=== PATIENT | male | born 1975 | race African-American/Black ===

== ENCOUNTER 2017-06-07 14:13 | Inpatient (IN) | payer OTHER ==
[~2017-06-07] VITALS: Ht 182.9 cm; Wt 158.8 kg
--- NOTE | ~2017-06-07 | EKG ---
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: Pramod NEGRON : 1975 Requested By: Agustin Dwyer Order Number: [id number] MD: Sascha Carbajal Measurements Intervals [place] Rate: 101 P: 35 TX: 171 QRS: -18 QRSD: 104 T: 150 QT: 334 QTc: 433 Interpretive Statements Sinus tachycardia Probable left atrial enlargement LVH with secondary repolarization abnormality No previous ECG available for comparison Electronically Signed On 06-10-2017 22:00:41 CDT by Sascha Carbajal [email or web address] <ELECTRONICALLY SIGNED> By: Sascha Carbajal MD 06/10/170 1443 1443 Sascha Carbajal MD /[place]
[~2017-06-07 14:13] MED LIST: IBUPROFEN 600600 M1 PO; IBUPROFEN 800800 MG PO; LASIX 20 MG TAB20 MG; MAGOX 400400 MG PO; NORCO 5-325 TA1 EACH PO; ULTRAM 50MG TAB50 MG PO
[2017-06-07 14:15] VITALS: BP 145/100
[2017-06-07] MEDS ORDERED: LISINOPRIL5 MG PO (14:23)
[2017-06-07] MEDS ORDERED: ALDACTONE25 MG PO (14:25)
[2017-06-07] MEDS ORDERED: CARVEDILOL6.25 MG PO (14:27)
[2017-06-07] MEDS ORDERED: LASIX 40 MG TAB40 M2 PO (14:27)
[2017-06-07] MEDS ORDERED: ELIQUIS5 MG PO (14:28)
[2017-06-07 14:45] LABS: HEMATOCRIT 34.9 % (42.0-52.0); HEMOGLOBIN 12.4 gm/dL (14.0-18.0); MCH 33.1 pg (26.0-34.0); MCHC 35.5 g/dL (28.0-37.0); MCV 93.4 fL (80.0-100.0); PLATELET COUNT 199 thou/uL (150-400); RBC 3.74 mil/uL (4.50-6.00); RDW 14.3 % (10.5-14.5); WBC 8.5 thou/uL (4.0-11.0)
[2017-06-07 14:47] LABS: MANUAL DIFF YES
[2017-06-07 14:58] LABS: INR 1.1; PROTIME 11.9 Seconds (9.3-11.4)
[2017-06-07 15:01] LABS: ALBUMIN 2.8 g/dL (3.4-5.0); ALKALINE PHOSPHATASE 57 U/L (46-116); ANION GAP 7 mmol/L (7-16); BUN 11 mg/dL (7-18); CALCIUM 9.3 mg/dL (8.5-10.1); CHLORIDE 100 mmol/L (98-107); CO2 31 mmol/L (21-32); GLUCOSE 123 mg/dL (74-106); NT-PRO BRAIN NAT PEPTIDE 95 pg/mL (<300); SGOT 22 U/L (15-37); SGPT 13 U/L (30-65); SODIUM 138 mmol/L (136-145); TOTAL BILIRUBIN 0.8 mg/dL (<0.1-1.0); TOTAL PROTEIN 8.4 g/dL (6.4-8.2); TROPONIN-I < 0.04 ng/mL (<0.04-0.07)
[2017-06-07 15:05] LABS: ABSOLUTE NEUTROPHILS 4.3 thou/uL (1.4-8.2); PLATELET ESTIMATE NORMAL; TOTAL CELL COUNT 100
[2017-06-07 15:06] LABS: POTASSIUM 2.8 mmol/L (3.5-5.1)
[2017-06-07 15:31] LABS: ABG SAMPLE TYPE ARTERIAL; BE(vivo) 8.2 mmol/L (-2 to +3); HCO3 33.3 mmol/L (22.0-26.0); LACTATE 1.51 mmol/L (0.5-2.0); O2(CT) 16.1 mL/dL (15.0-23.0); O2Hb 89.3 % (92.0-98.0); STICK SITE R.RADIAL; pH 7.459 (7.360-7.450); tCO2 34.8 mmol/L (24.0-30.0)
[2017-06-07 17:37] VITALS: BP 162/99
[2017-06-07 18:49] VITALS: BP 153/96
[2017-06-07 20:50] VITALS: BP 158/91
[2017-06-07 21:27] LABS: URINE BILIRUBIN NEGATIVE (Negative); URINE BLOOD TRACE (Negative); URINE COLOR YELLOW; URINE GLUCOSE-RANDOM* NEGATIVE (Negative); URINE KETONES NEGATIVE (Negative); URINE NITRITE NEGATIVE (Negative); URINE PROTEIN (DIPSTICK) 1+ (Negative); URINE SPECIFIC GRAVITY 1.015 (1.003-1.035); URINE UROBILINOGEN >= 8.0 E.U./dl (0.2-1.0)
[2017-06-07 21:33] LABS: BACTERIA 1-9 Few /HPF (None Seen); CASTS None Seen /LPF (None Seen); CRYSTALS None Seen /LPF (None Seen); SQUAMOUS None Seen /LPF (0-3); URINE RBC None Seen /HPF (0-2); URINE WBC None Seen /HPF (0-5)
[2017-06-08 00:12] VITALS: BP 154/94
[2017-06-08 01:58] LABS: HEMATOCRIT 31.6 % (42.0-52.0); HEMOGLOBIN 11.1 gm/dL (14.0-18.0); MCH 32.9 pg (26.0-34.0); MCHC 35.1 g/dL (28.0-37.0); MCV 93.8 fL (80.0-100.0); RBC 3.37 mil/uL (4.50-6.00); RDW 14.1 % (10.5-14.5); WBC 7.8 thou/uL (4.0-11.0)
[2017-06-08 02:02] LABS: CALCIUM 8.2 mg/dL (8.5-10.1); CREATININE 0.8 mg/dL (0.7-1.3); MAGNESIUM 1.8 mg/dL (1.8-2.4)
[2017-06-08 02:21] LABS: POTASSIUM 2.9 mmol/L (3.5-5.1)
[2017-06-08 04:25] VITALS: BP 157/97
[2017-06-08 08:45] VITALS: BP 151/90
[2017-06-08 16:45] VITALS: BP 156/97
[2017-06-08 19:30] VITALS: BP 171/95
[2017-06-09 04:30] VITALS: BP 146/94
[2017-06-09 08:02] VITALS: BP 157/97
[2017-06-09 19:50] VITALS: BP 155/99
[2017-06-10 05:00] VITALS: BP 150/96
[2017-06-10 07:52] LABS: CALCIUM 8.7 mg/dL (8.5-10.1); CREATININE 0.9 mg/dL (0.7-1.3); POTASSIUM 4.2 mmol/L (3.5-5.1)
[2017-06-10] MEDS ORDERED: HYDROCODON-ACE1 EAC7 PO (07:58)
[2017-06-10] MEDS ORDERED: PREDNISONE10 MG PO (07:59)
[2017-06-10 08:07] VITALS: BP 150/96
[2017-06-10 08:14] VITALS: BP 173/113
[2017-06-10 08:15] VITALS: BP 115/100
== END 2017-06-10 09:37 | disposition home or self-care (01) | DRG 558 ==
LOC: ER 14:13 → EROBS 17:08 → 4S 17:08
PROVIDERS: Emergency Medicine; Family Medicine
DX: M62.82 Rhabdomyolysis (principal); I42.9 Cardiomyopathy, unspecified; I50.30 Unspecified diastolic (congestive) heart failure; M10.9 Gout, unspecified; I11.0 Hypertensive heart disease with heart failure; E87.6 Hypokalemia; Z86.718 Personal history of other venous thrombosis and embolism; Z87.891 Personal history of nicotine dependence; Z79.899 Other long term (current) drug therapy
CPT/HCPCS: 10100

== ENCOUNTER 2018-08-28 08:17 | Emergency (ER) | payer OTHER ==
[~2018-08-28] VITALS: Ht 182.9 cm; Wt 152.4 kg
--- NOTE | ~2018-08-28 | EKG ---
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 08/28/18 1713 1 1 Paulino Machuca MD, [facility] /EPI
--- NOTE | ~2018-08-28 | EKG ---
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1975 Requested By: Maribell Barbour Order Number: [id number] MD: Paulino Machuca Measurements Intervals [place] Rate: 107 P: 50 MI: 171 QRS: -29 QRSD: 100 T: 76 QT: 357 QTc: 477 Interpretive Statements Sinus tachycardia Left atrial enlargement Poor R wave progression Borderline prolonged QT interval Compared to ECG 06/07/2017 14:43:14 Supraventricular tachycardia is no longer present Electronically Signed On 08-28-2018 17:14:06 CDT by Paulino Machuca [email or web address] <ELECTRONICALLY SIGNED> By: Paulino Machuca MD, [facility] 08/28/18 1714 5 5 Paulino Machuca MD, [facility] /EPI
[~2018-08-28 08:17] MED LIST changes: +ALDACTONE25 MG PO; +CARVEDILOL6.25 MG PO; +COLCHICINE0.6 MG PO; +ELIQUIS5 MG PO; +HYDROCODON-ACE1 EAC7 PO; +LASIX 40 MG TAB40 M2 PO; +LISINOPRIL5 MG PO; +PREDNISONE 20 M20 MG PO; +PREDNISONE10 MG PO
[2018-08-28 09:00] LABS: HEMATOCRIT 42.5 % (42.0-52.0); HEMOGLOBIN 14.5 gm/dL (14.0-18.0); MCH 31.7 pg (26.0-34.0); MCHC 34.2 g/dL (28.0-37.0); MCV 92.8 fL (80.0-100.0); RBC 4.58 mil/uL (4.50-6.00); RDW 14.8 % (10.5-14.5); WBC 6.2 thou/uL (4.0-11.0)
[2018-08-28 09:08] LABS: CALCIUM 9.2 mg/dL (8.5-10.1); CREATININE 1.4 mg/dL (0.7-1.3); POTASSIUM 3.6 mmol/L (3.5-5.1)
[2018-08-28 09:17] LABS: TROPONIN-I 0.07 ng/mL (<0.06)
[2018-08-28 10:08] VITALS: BP 127/90
== END 2018-08-28 10:09 | disposition home or self-care (01) ==
LOC: ER 08:17
PROVIDERS: Emergency Medicine
DX: I47.1 Supraventricular tachycardia (principal); I50.9 Heart failure, unspecified; M10.9 Gout, unspecified; Z86.718 Personal history of other venous thrombosis and embolism; Z87.891 Personal history of nicotine dependence

== ENCOUNTER 2019-03-01 17:38 | Inpatient (IN) | payer OTHER ==
[~2019-03-01] VITALS: Ht 180.3 cm; Wt 207.7 kg
[2019-03-01 18:42] VITALS: BP 183/118
--- NOTE | 2019-03-01 18:44 | NUR ---
PT HAD ARRIVED ABOUT AN HOUR AGO. VS WERE TAKEN AT THAT TIME WITH HR: 110, SPO2: 94%; BP: 189/119.
--- NOTE | 2019-03-01 18:47 | NUR ---
PT IN TRIAGE AND IS VERY SOA. PT SPO2 WAS 87% THEN WHEN HE WAS TALKING IT DIPPED TO 84%. WHEN PT IS CALM AND NOT TALKING, SPO2 GOES TO 90%. PT AWAITING ROOM ASSIGNMENT.
--- NOTE | 2019-03-01 18:54 | NUR ---
TOOK PT TO ROOM 7 WITH O2 PER NC. PT PLACED ON MANAGER NIGHT AND SPO2 MONITOR. O2 AT 2L USED.
[2019-03-01 19:15] LABS: BASOPHILS 0.8 % (0.0-2.0); HEMATOCRIT 39.1 % (42.0-52.0); HEMOGLOBIN 13.1 gm/dL (14.0-18.0); LYMPHOCYTES 23.7 % (24.0-44.0); MCH 31.7 pg (26.0-34.0); MCHC 33.5 g/dL (28.0-37.0); MCV 94.4 fL (80.0-100.0); MONOCYTES 8.7 % (1.0-8.0); PLATELET COUNT 209 thou/uL (150-400); POLYS 63.8 % (36.0-66.0); RBC 4.14 mil/uL (4.50-6.00); RDW 16.2 % (10.5-14.5); WBC 6.3 thou/uL (4.0-11.0)
[2019-03-01 19:33] LABS: ALBUMIN 2.8 g/dL (3.4-5.0); CALCIUM 8.5 mg/dL (8.5-10.1); TOTAL BILIRUBIN 0.6 mg/dL (<0.1-1.0); TROPONIN-I 0.07 ng/mL (<0.06)
[2019-03-01 19:35] LABS: POTASSIUM 2.9 mmol/L (3.5-5.1)
[2019-03-01 20:12] LABS: CALCIUM 8.2 mg/dL (8.5-10.1); MAGNESIUM 1.6 mg/dL (1.8-2.4)
[2019-03-01] MEDS ORDERED: CARVEDILOL3.125 MG PO (21:46)
[2019-03-01] MEDS ORDERED: LISINOPRIL20 MG PO (21:46)
[2019-03-01 22:03] VITALS: BP 165/94
[2019-03-01 22:30] VITALS: BP 153/109
--- NOTE | 2019-03-02 01:31 | NUR ---
PT ARRIVED FROM ER AROUND 2210 ON 01/01/2019. PT A&0X4. VSS. ON 4L NC. PT HAS EVIDENT EDEMA ON HIS LEGS, DUSKY LOOKING, & TAUT. THE SKIN PROXIMAL TO HIS KNEES APPEARS PINK WELL. MED REC COMPLETED, HE STATED THAT HE DOES NOT LIKE TO USE HIS COREG BECAUSE HE NOTICED THAT WHENEVER HE TAKES IT, HIS SWELLING INCREASES. PT REQUESTED A SLEEPING AID.HE STATED THAT THE MOST SLEEP HE HAD GOTTEN IN THE LAST MONTH IS 2 [address]RS AT A TIME. SO DR. HASSAN NOTIFIED, AMBIEN RX AND ADMINISTERED. PT ALSO STATED THAT HE HAD GAINED ABOUT 36 LBS IN THE LAST 2 MONTHS. HE FURTHER COMPLAINED OF LOWER ABD PAIN AND NERY LEG PAIN. PT IS STABLE. KATEYY SLEEPING. WILL CONTINUE TO MONITOR PER POC.
[2019-03-02 05:32] VITALS: BP 150/111
[2019-03-02 06:12] LABS: MAGNESIUM 1.6 mg/dL (1.8-2.4); POTASSIUM 3.4 mmol/L (3.5-5.1)
[2019-03-02 07:30] VITALS: BP 153/108
[2019-03-02 10:28] LABS: MAGNESIUM 1.7 mg/dL (1.8-2.4); POTASSIUM 3.2 mmol/L (3.5-5.1)
[2019-03-02 13:00] VITALS: BP 154/100
--- NOTE | 2019-03-02 13:41 | EKG ---
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 : 1975 Requested By: Carie Bush Order Number: [id number] MD: Paulino Machuca Measurements Intervals [place] Rate: 101 P: 53 IN: 172 QRS: -34 QRSD: 103 T: 101 QT: 378 QTc: 490 Interpretive Statements Sinus tachycardia Left atrial enlargement Left axis deviation Abnormal R-wave progression, late transition Nonspecific repol abnormality, lateral leads Compared to ECG 08/28/2018 08:36:35 No significant change was found Electronically Signed On 03-02-2019 13:41:13 CDT by Paulino Machuca [email or web address] ��������������������������������������������� <ELECTRONICALLY SIGNED> ���������������������������������������� By: Paulino Machuca MD, [facility] ��������������������������������������������� 03/02/19 1341 1749 1749 Paulino Machuca MD, [facility] /EPI
[2019-03-02 14:09] LABS: MAGNESIUM 1.8 mg/dL (1.8-2.4); POTASSIUM 3.5 mmol/L (3.5-5.1)
[2019-03-02 16:13] VITALS: BP 144/103
--- NOTE | 2019-03-02 17:17 | NUR ---
ASSUMED CARE OF PT AT SHIFT CHANGE. ASSESSMENT CHARTED. MEDS GIVEN PER JAN. PT ALERT AND ORIENTED, VSS- BP ELEVATED, PHYSICIAN AWARE. NSR ON MONITOR, O2 SATS WNL ON 4L O2, PT SOB WITH ACTIVITY, RESOLVES WITH REST. PT CONTINUES TO HAVE EDEMA BILATERAL LEGS AND FEET, LASIX GIVEN PER JAN. URINE OUTPUT ADEQUATE, PT GOT UP AND WALKED ARUOND, TOLERATED WELL. C/O BILAT LEG PAIN AND RIGHT KNEE PAIN. PHYSICIAN NOTIFIED OXYCODONE PROVIDING NO RELIEF. ORDERS RECEIVED FOR TORADOL. PT DENIES CONCERNS AT THIS TIME. WILL CONTINUE TO MONITOR AND REASSESS PAIN NEEDED AND FOLLOW POC.
[2019-03-02 19:55] VITALS: BP 148/94
[2019-03-03 03:56] LABS: CALCIUM 8.3 mg/dL (8.5-10.1); CREATININE 0.9 mg/dL (0.7-1.3); MAGNESIUM 1.9 mg/dL (1.8-2.4); POTASSIUM 3.7 mmol/L (3.5-5.1)
[2019-03-03 04:55] VITALS: BP 143/99
--- NOTE | 2019-03-03 05:31 | NUR ---
ASSUME CARE AT 1900. PT AO X 4. C/O PAIN IN THE RIGHT KNEE. OXY GIVEN . VITAL SIGNS STABLE. DARK BROWN URINE. DENIES PAIN WITH URINATION. DENIES NAUSEA, VOMITING OR CHEST PAIN. PATIENT CONCERNED ABOUT SWELLING IN HIS FEET. ON LESIX. WILL CONTINUE TO FOLLOW PLAN OF CARE.
[2019-03-03 07:26] VITALS: BP 142/102
[2019-03-03 10:59] VITALS: BP 142/85
--- NOTE | 2019-03-03 11:02 | 2DMMODE ---
[facility] [address] [place] [address] 2 D/M-MODE ECHOCARDIOGRAM Name: KAERNJANEL J Room #: 205-P [facility] IN ..#: [id number] ������������� Admission: 03/01/19 ������������� Attend Phys: Moe John, Discharge: ��� ������������� ��� Date of : 79 Date of Service: 03/03/19 1102 �� Report #: [id number] �������� ��������������������������������������������[id number] THIS REPORT FOR: //name// APPROVED REPORT Study performed: 03/03/2019 08:55:33 EXAM: Comprehensive 2D, Doppler, and color-flow Echocardiogram Patient Location: Bedside Room #: [facility] Status: routine BSA: 3.00 HR: 98 bpm BP: 142/102 mmHg Rhythm: Tachycardia Other Information Study Quality: Technically Difficult Technically limited study due to body habitus, inability to position patient. Indications Congestive Heart Failure Hypertension/HDD SOA Echo Enhancing Agent Indication: Endocardial border delineation Agent(s) / Amount(s) Used: Optison 4 cc 2D Dimensions IVSd: 15.35 (7-11mm) LVOT Diam: 27.94 (18-24mm) LVDd: 51.00 mm PWd: 16.50 (7-11mm) Ascending Ao: 27.96 (22-36mm) LVDs: 44.41 (25-40mm) Aortic Root: 35.01 mm Volumes Left Atrial Volume (Systole) Single Plane 4CH: 38.59 mL Single Plane 2CH: 40.61 mL LA ESV Index: 14.00 mL/m2 Aortic Valve AoV Peak Jason.: 1.41 m/s AO Peak Gr.: 7.90 mmHg LVOT Max P.68 mmHg [facility] [address] [place] [address] 2 D/M-MODE ECHOCARDIOGRAM Name: JANEL JONES Pramod II Room #: [address] [place] [address] [place] [facility]#: [id number] ������������� Admission: 03/01/19 ������������� Attend Phys: Moe John, Discharge: ��� ������������� ��� Date of : 79 Date of Service: 03/03/19 1102 �� Report #: [id number] �������� ��������������������������������������������[id number] LVOT Max V: 0.82 m/s CHILO Vmax: 3.57 cm2 Mitral Valve E/A Ratio: 0.8 MV Decel. Time: 175.67 ms MV E Max Jason.: 0.68 m/s MV A Jason.: 0.85 m/s MV PHT: 50.94 ms Pulmonary Valve PV Peak Jason.: 0.97 m/s PV Peak Gr.: 3.74 mmHg Left Ventricle The left ventricle is normal size. Moderate concentric left ventricular hypertrophy. Left ventricular ejection fraction is moderate to severely decreased. LVEF is 30-35%. Transmitral Doppler flow pattern suggests impaired LV relaxation. Right Ventricle Right ventricle is not well visualized. Atria The left atrium size is normal. Right atrium is not well visualized. Aortic Valve The aortic valve is not well visualized. No aortic regurgitation is visualized. There is no aortic valvular stenosis. Mitral Valve The mitral valve is normal in structure. There is no mitral valve regurgitation noted. No evidence of mitral valve stenosis. Tricuspid Valve Tricuspid valve is not well visualized. There is no tricuspid valve regurgitation noted. Pulmonic Valve Pulmonic valve is not well visualized. Great Vessels The aortic root is normal in size. The inferior vena cava is not visualized. Pericardium [address] [address] 2 D/M-MODE ECHOCARDIOGRAM Name: KARENJANEL Room #: 205-P [facility] IN M.R.#: [id number] ������������� Admission: 03/01/19 ������������� Attend Phys: Moe John, Discharge: ��� ������������� ��� Date of : 79 Date of Service: 03/03/191101 �� Report #: [id number] �������� ��������������������������������������������[id number] There is no pericardial effusion. <Conclusion> Extremely limited study, almost uninterpretable Left ventricular ejection fraction is moderate to severely decreased. LVEF is 30-35%. The aortic valve is not well visualized. No aortic regurgitation or stenosis The mitral valve is normal in structure. No mitral valve regurgitation. There is no pericardial effusion. ��������������������������������������������� <ELECTRONICALLY SIGNED> ���������������������������������������� By: Paulino Machuca MD, FACC ��������������������������������������������� 03/03/19 1102 01 1102 Paulino Machuca MD, FACC /INF
[2019-03-03 15:40] VITALS: BP 147/97
--- NOTE | 2019-03-03 16:21 | NUR ---
PT O2 NEEDS INCREASED TO 5L PER NC. PT C/O SOA WITH MINIMAL EXERTION. PT C/O RT KNEE PAIN, DOPPLER NEGATIVE FOR DVT. PRN OXYCODONE EFFECTIVE FOR PAIN MANAGEMENT. PT CONT TO DIURESE WITH IV LASIX. PT DIFFICULT TO REPOSITION D/T OBESITY. PT'S FATHER AT BEDSIDE
[2019-03-03 20:45] VITALS: BP 139/83
--- NOTE | 2019-03-04 04:30 | NUR ---
PT ON 5 L OF OXYGEN. REFUSED CPAP IT HAD BEEN SUGGESTED BY DR. HASSAN. STILL C/O OF RIGHT KNEE PAIN, ALLEVIATED BY PRN OXYCODONE. PT ALSO HAS DARK/COFFEE COLOR URINE. DENIES BURNING/PAIN OR URINE URGENCY. VITALS REMAIN STABLE. WILL CONTINUE TO FOLLOW POC.
[2019-03-04 04:55] VITALS: BP 147/79
[2019-03-04 07:46] VITALS: BP 128/77
[2019-03-04 08:42] LABS: CALCIUM 9.3 mg/dL (8.5-10.1); CREATININE 1.1 mg/dL (0.7-1.3); POTASSIUM 3.8 mmol/L (3.5-5.1)
[2019-03-04 11:04] VITALS: BP 129/89
--- NOTE | 2019-03-04 13:53 | EKG ---
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 : 1975 Requested By: Sascha Carbajal Order Number: [id number] MD: Sascha Carbajal Measurements Intervals [place] Rate: 96 P: 24 NC: 177 QRS: -18 QRSD: 97 T: 109 QT: 365 QTc: 462 Interpretive Statements Sinus rhythm Left atrial enlargement Borderline left axis deviation Abnormal R-wave progression, late transition Borderline repolarization abnormality Baseline wander in lead(s) II,V1 Compared to ECG 03/01/2019 17:49:34 Sinus tachycardia no longer present Electronically Signed On 03-04-2019 13:53:46 CDT by Sascha Carbajal [email or web address] ��������������������������������������������� <ELECTRONICALLY SIGNED> ���������������������������������������� By: Sascha Carbajal MD ��������������������������������������������� 03/04/19 1353 7 7 Sascha Carbajal MD /EPI
--- NOTE | 2019-03-04 15:20 | NUR ---
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 Patient resides in independent home. 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 His PCP is Dr John. He is obese and reports he may need oxygen at home. He is currently on 5 liters. patient does not use any cpap/bipap at home. His employment aware he is in hospital and he has adequate time off work.
[2019-03-04 16:38] VITALS: BP 144/91
--- NOTE | 2019-03-04 17:14 | NUR ---
RESTING QUIETLY IN BED AT PRESENT. ON 5L/NC. FEELING LESS SOB WITH EXERTION. NERY LE EDEMA NOTED. UNABLE TO PALPATE PEDAL PULSES. MAIN COMPLAINT LOW BACK PAIN. IV ACCIDENTALLY PULLED OUT BY PATIENT. HAVE PAGED IV TEAM TO RESTART. TOOK SHOWER. IN [employer] BECAUSE HE WAS ABLE TO GET AND WALK TODAY. EATING APPROXIMATELY 1/2 OF MEALS. HOPING TO GO HOME TOMORROW.
[2019-03-04 19:55] VITALS: BP 121/50
--- NOTE | 2019-03-05 04:40 | NUR ---
PT STILL STILL EXPERIENCING RESP DISTRACE WITH EXERTION. REMAINS ON 5L NC. DENIES CHEST PAIN, NAUSEA OR VOMITING. PT REPORTS FEELING BETTER YESTERDAY HE WAS ABLE TO WALK AROUND AND TAKE A SHOWER. C/O RIGHT KNEE PAIN, ALLEVIATED BY TORADOL. VITALS STABLE. NO FURTHER C/O AT THIS TIME. WILL CONTINUE TO FOLLOW POC.
[2019-03-05 04:55] VITALS: BP 139/65
[2019-03-05 07:14] VITALS: BP 128/69
[2019-03-05 10:17] VITALS: BP 147/91
[2019-03-05 11:05] VITALS: BP 147/91
--- NOTE | 2019-03-05 14:14 | NUR ---
PATIENT NEEDING 6 LITERS AT REST WITH OXYGEN AND 15 LITERS WITH ACTIVITY. REQUESTED THERAPY EVAL. SP WITH THERAPIST WHO REPORTS PATIENT WEAK, NOT AT BASELINE AND NEEDING ASSIST. PATIENT MAY BENEFIT FROM REHAB UNIT PRIOR TO HOME. SP WITH PATIENT HE IS DISCOURAGED. HE REPORTS BEING DISAPPOINTED IN HIMSELF. HE STATES HE WAS GETTING AROUND JUST LAST WEEK. HE REPORTS IF HE DIDNT USE WALKER HE FELT LIKE HE WOULD HAVE FALLEN OR BEEN UNABLE TO STAND. DISCUSSED POSSIBLE NEED FOR 5N AND HE IS AGREEABLE IF NEEDED.
[2019-03-05 14:21] VITALS: BP 144/82
--- NOTE | 2019-03-05 14:33 | NUR ---
Nutrition: pt admitted with SOA, swelling in feet, heart failure. Diuresing. Seen due to extreme class 3 obesity, BMI 63. Unable to speak with pt on 3 attempts to visit. On low sodium diet with 50% intake of meals documented yesterday. RD available if pt interested in weight loss/dietary education.
--- NOTE | 2019-03-05 16:39 | NUR ---
ASSESSMENT CHARTED - PATIENT WITH ODEMA IN LEGS BILAT L>R LEFT LEG FIRM WITH SWELLING. PT STATES THAT IS UNCOMFORTABLE AND HURTS IF FOOT PUSHED ON. SEEN BY PHYS THERAPY - PT NOT READY FOR DISCHARGE - HAS TO USE WALKER AND POST EXERCISE OX PT NEED TO AMBULATE ON [address] HASSAN NOTIFIED FOR REHAB CONSULT. PT UP IN CHAIR IN THE ROOM. MOHAMUD DIET AND FLUIDS WITH NO CO'S OF NAUSEA. LASIX GIVEN WITH GOOD RESULTS. NOP CO'S AT THE PRESENT TIME.
[2019-03-05 19:12] VITALS: BP 125/62
--- NOTE | 2019-03-06 03:41 | NUR ---
ASSESSMENT DOCUMENTED.PT RESTING IN NO ACUTE DISTRESS.VSS.REMAINS ON O2 AT 5LITERS PNC,SATS ADEQUATE,NOTED SOA DAVIS.CONTINUES TO C/O PAIN TO NERY LES,PAIN MEDS GIVEN WITH PARTIAL RELIEF.BLES EDEMATOUS,FEELS FIRM TO TOUCH,PT STATES THEY HURT ESPECIALLY WITH AMBULATION.POSITIVE PEDAL PULSES.POC IS TO CONTINUES TO DIURESE AND MONITOR.
[2019-03-06 04:30] LABS: CREATININE 0.9 mg/dL (0.7-1.3); POTASSIUM 3.8 mmol/L (3.5-5.1)
[2019-03-06 04:52] VITALS: BP 120/86
[2019-03-06 07:05] VITALS: BP 145/65
[2019-03-06 11:20] VITALS: BP 113/87
[2019-03-06 16:35] VITALS: BP 128/74
[2019-03-06 19:46] VITALS: BP 130/81
--- NOTE | 2019-03-06 20:00 | NUR ---
SHIFT SUMMARY: PT VERY TIRED, SLEEPING MOST OF SHIFT, AWAKENS EASILY. SR, 5L/NC, SOA WITH ACTIVITY IE AMBULATING TO BATHROOM, TOLERATING DIET, VOIDED-1,350 IN RESPONSE TO LASIX. SLOWLY PROGRESSING.
--- NOTE | 2019-03-07 02:53 | NUR ---
ASSESSSMENT DOCUMENTED.PT RESTING IN NO ACUTE DISTRESS.A/OX4.VSS.CONT TO C/O PAIN TO NERY LEGS THAT IS CONTROLLED WITH PAIN MEDS.REMAINS ON O2 AT 5LITERS.ADEQUATE SPO2.DAVIS.VOIDING ADEQUATELY.ON LASIX 80MG IVP BID.NERY LES EDEMA 3+,FIRM TO TOUCH.POC IS TO POSSIBLE DISCHARGE TO REHAB UNIT TODAY.WILL CONT TO MONITOR PER POC.
[2019-03-07 04:21] VITALS: BP 107/57
[2019-03-07 07:40] VITALS: BP 149/83
--- NOTE | 2019-03-07 10:11 | NUR ---
[facility] ACUTE REHAB CAN ACCEPT THE PT TODAY AND INS AUTH IS IN PLACE. CARE TEAM UPDATED. PT IS AGREEABLE. AWAITING MEDICAL CLEARANCE AND ORDERS FOR DC TO REHAB TODAY.
[2019-03-07] MEDS ORDERED: METOPROLOL SUCC50 MG PO (10:20)
[2019-03-07] MEDS ORDERED: ENOXAPARIN40 MG/0.1 SUBQ (10:20)
[2019-03-07] MEDS ORDERED: OXYCODONE HCL 55 MG PO (10:21)
[2019-03-07] MEDS ORDERED: COZAAR100 MG PO (10:21)
[2019-03-07] MEDS ORDERED: AMLODIPINE BESYL5 M1 PO (10:21)
[2019-03-07] MEDS ORDERED: SPIRONOLACTONE25 M1 PO (10:21)
[2019-03-07] MEDS ORDERED: AMBIEN 5 MG TABL5 M1 PO (10:22)
[2019-03-07] MEDS ORDERED: PREDNISONE 20 M20 M1 PO (10:23)
[2019-03-07 11:20] VITALS: BP 135/77
--- NOTE | 2019-03-10 14:16 | HC ---
[facility] [place] [address] CONSULTATION Name: JANEL JONES II Room #: [address] [place] [address] IN M.R.#: [id number] Admission: 03/01/19 ������������������ Attend Phys: Moe John MD Discharge: 03/07/19 ������������������ Date of : 79 Report #: [id number] THIS REPORT FOR: //name// CC: Paulino John CARDIOLOGY CONSULTATION REASON FOR CONSULTATION: Congestive heart failure. HISTORY OF PRESENT ILLNESS: The patient is a 43-year-old male with a history of diastolic heart failure per Dr. John's notes who presents with several months of worsening shortness of breath and lower extremity edema. He says over the past week, he has had severe shortness of breath and can only take a few steps before he has to stop and rest. He denies any chest pain or chest tightness. He has experienced some orthopnea at night. He denies any presyncope or syncope. PAST MEDICAL HISTORY: 1. Diastolic heart failure. 2. Morbid obesity, weighs 217 kilograms. 3. Gout. 4. Hypertension. SOCIAL HISTORY: Does not smoke. FAMILY HISTORY: Noncontributory. ALLERGIES: None. MEDICATIONS: At home include lisinopril, Coreg and Lasix. REVIEW OF SYSTEMS: A 12-point review of systems was performed. It was negative other than what I mentioned above. PHYSICAL EXAMINATION: VITAL SIGNS: Temp is 36.5, pulse 87, respiratory rate 24, blood pressure 153/108, sats are 96%. GENERAL: No acute distress. HEENT: Sclerae are anicteric. Oropharynx is clear. NECK: There is no thyromegaly. HEART: Regular rate and rhythm with no murmurs, rubs, gallops. LUNGS: Clear to auscultation bilaterally. ABDOMEN: Obese, but nontender, nondistended. EXTREMITIES: 2+ pulses throughout. He has got a 2-3+ lower extremity edema that is tense. NEUROLOGIC: Cranial nerves 2-12 are intact. [facility] [address] [place] [address] CONSULTATION Name: JANEL JONES Pramod Room #: [address] [place] [address] IN M.R.#: [id number] Admission: 03/01/19 ������������������ Attend Phys: Moe John MD Discharge: 03/07/19 ������������������ Date of : 79 Report #: [id number] LABORATORY AND DIAGNOSTIC DATA: CBC is within normal limits. Chemistry: Sodium 140, potassium 3.0, BUN 14, creatinine 1, ProBNP is 1045, troponin 0.07. Chest x-ray shows evidence of pulmonary edema. His 12-lead EKG today shows sinus rhythm with no ischemic changes. ASSESSMENT: 1. Acute on chronic diastolic heart failure. 2. Hypertensive urgency. 3. Morbid obesity. 4. Gout. 5. Hypokalemia. 6. Hypomagnesemia. PLAN: In summary, the patient is a 43-year-old presenting with acute on chronic diastolic heart failure. We will need to optimize his blood pressure and he will need aggressive IV diuresis. We will obtain an echo in the morning. We will follow. ��������������������������������������������� <ELECTRONICALLY SIGNED> ���������������������������������������� By: Sascha Carbajal MD ��������������������������������������������� 03/10/19 1416 [id number] [id number] Sascha Carbajal MD /nt
== END 2019-03-07 13:30 | DRG 291 ==
LOC: ER 17:38 → 2N 20:01 → EROBS 20:01 → 2N 22:06 → ENTRNSPT 03-07 12:48 → EDTRNSPTSTS 03-07 12:49 → 2N 03-07 13:30
PROVIDERS: Internal Medicine Cardiovascular Disease; Student in an Organized Health Care Education/Training Program; ADMIT Family Medicine
DX: I11.0 Hypertensive heart disease with heart failure (principal); J96.01 Acute respiratory failure with hypoxia; Z68.44 Body mass index [BMI] 60.0-69.9, adult; J96.12 Chronic respiratory failure with hypercapnia; E66.2 Morbid (severe) obesity with alveolar hypoventilation; I50.43 Acute on chronic combined systolic (congestive) and diastolic (congestive) heart failure; M10.9 Gout, unspecified; E83.42 Hypomagnesemia; I16.0 Hypertensive urgency; M17.11 Unilateral primary osteoarthritis, right knee; D64.9 Anemia, unspecified; G47.33 Obstructive sleep apnea (adult) (pediatric); E87.6 Hypokalemia; Z86.718 Personal history of other venous thrombosis and embolism; Z91.14 Patient's other noncompliance with medication regimen; Z87.891 Personal history of nicotine dependence; Z79.899 Other long term (current) drug therapy
CPT/HCPCS: 10081

== ENCOUNTER 2019-03-07 09:44 | Inpatient (IN) | payer OTHER ==
[~2019-03-07] VITALS: Ht 180.3 cm; Wt 190.2 kg
[~2019-03-07 09:44] MED LIST changes: +CARVEDILOL3.125 MG PO; +LISINOPRIL20 MG PO
[2019-03-07] MEDS ORDERED: METOPROLOL SUCC50 MG PO (10:20)
[2019-03-07] MEDS ORDERED: ENOXAPARIN40 MG/0.1 SUBQ (10:20)
[2019-03-07] MEDS ORDERED: AMLODIPINE BESYL5 M1 PO (10:21)
[2019-03-07] MEDS ORDERED: SPIRONOLACTONE25 M1 PO (10:21)
[2019-03-07] MEDS ORDERED: OXYCODONE HCL 55 MG PO (10:21)
[2019-03-07] MEDS ORDERED: COZAAR100 MG PO (10:21)
[2019-03-07] MEDS ORDERED: AMBIEN 5 MG TABL5 M1 PO (10:22)
[2019-03-07] MEDS ORDERED: PREDNISONE 20 M20 M1 PO (10:23)
[2019-03-07 14:02] VITALS: BP 142/84
--- NOTE | 2019-03-07 14:48 | NUR ---
cm visited with pt at bedside. pt preferrs going by will. noted pt on o2 5L/nc, will need to try and pantera off o2 prior to dc home. new admit to acute rehab today. dr rolon finished up visiting with pt as well. intro to cm, transition of care, and team meetings. pt reported " live alone in apartment, 3 floor. [address] 30 or maybe 22, there is 2 set of eight then 3rd set. no medical equipment. independent with all adls. manage own medication. 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 was fine till week or so ago. noticed swelling and tight skin on lower legs. then diff sleeping. no hh or rehab in past. dr miilan is pcp. i might have some where to go at dc if needed or just go home by myself. have mom, dad and sister in area."/will. cont following as needed for dc needs.
[2019-03-07 15:45] VITALS: BP 142/84
--- NOTE | 2019-03-07 17:55 | NUR ---
ASSESSMENT CHARTED - MEDS A SPER JAN - GIVEN OXY FOR CO'S OF PAIN IN FEET AND LEGS WITH MIN EFFECT PT STATES. MOHAMUD DIET AND FLUIDS. NO CO'S OF NAUSEA. PT TRANSFERED TO 5N REHAB THIS AFTERNOON - PT TO WHEEL CHAIR WITH MUCH DIFFICULTY. O2 TURNED UP WHEN PATIENT TRANSFERED FROM BED TO CHAIR. REPORT CALLED TO UNIT. NO CO'S AT TIME OF TRANSFER.
--- NOTE | 2019-03-07 19:34 | NUR ---
ASSUMED CARE AT APPROX 1330. PT ADMITED FROM CCU TO 5N FOR ACUTE CHF. LIVED HOME ALONE. HAS PARENTS HIS SUPPORT. PATIENT A/OX4. C/O RIGHT KNEE AND LOW EXTREMITY PAIN 8/10, PRN TYLENOL AND OXYCODONE GIVEN. PAIN WENT DOWN TO 5/10. VS TAKEN, SAT 95% ON 5L. AND 15L WITH ACTIVITY. DENIES USING OXYGEN AT HOME. PATIENT EDUCATED ON UNIT SPECIFIC PRECAUTIONS INCLUDING FALL PRECAUTIONS. DISCUSSED ABOUT REHAB SCHEDULE. PHYSICAL THERAPIST CAME AND EVALUATED PT. FALL PRECAUTIONS IN PLACE. PATIENT VERBALLY AGREED TO FALL PRECAUTIONS. PATIENT ATE 100% DINNER, NO SWALLOWING ISSUES. PATIENT UP X1 ASSIST GB, IT TOOK AWHILE TO STAND UP BUT CGA WHEN WALKING, PAIN WHEN STANDING D/T GOUT. REPORT LAST BM WAS YESTERDAY. ADMISSION ASSESSMENT COMPLETE. PT HAS TENDERNESS ON BILATERAL UPPER EXTREMITIES, TRACE EDEMA BOTH LEGS. GAVE REP OFFERED SUPPORTIVE CARE. ENCOURAGED PT TO VOICE HIS NEEDS. PT HAS BRIGHT AFFECT AND ABLE TO MAKE HIS NEEDS KNOWN. BREATHING BETTER WHEN HOB. FAXED MED LIST TO PHARMACY. HANDOFF TO NIGHT NURSE TO CONTINUE TO FOLLOW UP WITH MEDS AND CALL FOR PHYSICIAN CONSULTS.
[2019-03-07 20:36] VITALS: BP 130/72
--- NOTE | 2019-03-07 23:30 | NUR ---
PT ASSESSMENT COMPLETED AND VSS. MEDS GIVEN ORDERED AND WELL TOLERATED. FALL PRECAUTIONS IN PLACE. VOIDING LARGE AMOUNT OF DARK YELLOW URINE IN URINAL. PT REPOSITIONING SELF IN BED. PRN PAIN AND SLEEP MEDICATION WORKING WELL. SAT WNL ON NC EVEN WITH SPOT CHECKS WHILE SLEEPING. RT IN TO CHECK ON PT. SLEEPING WELL. WILL CONTINUE TO MONITOR FREQUENTLY.
[2019-03-08 05:02] LABS: HEMATOCRIT 36.2 % (42.0-52.0); HEMOGLOBIN 11.7 gm/dL (14.0-18.0); MCH 30.8 pg (26.0-34.0); MCHC 32.3 g/dL (28.0-37.0); MCV 95.5 fL (80.0-100.0); RBC 3.79 mil/uL (4.50-6.00); RDW 15.8 % (10.5-14.5); WBC 5.8 thou/uL (4.0-11.0)
[2019-03-08 05:13] LABS: CALCIUM 9.7 mg/dL (8.5-10.1); CREATININE 0.9 mg/dL (0.7-1.3); POTASSIUM 4.2 mmol/L (3.5-5.1)
[2019-03-08 05:19] LABS: BE(vivo) 11.5 mmol/L (-2 to +3); HCO3 42.3 mmol/L (22.0-26.0); PO2 85.7 mmHg (80.0-100.0); sO2 94.6 % (92.0-98.0)
[2019-03-08 05:21] LABS: PCO2 92.2 mmHg (35.0-45.0); pH 7.279 (7.360-7.450)
[2019-03-08 06:15] VITALS: BP 129/89
[2019-03-08 06:41] LABS: BE(vivo) 12.7 mmol/L (-2 to +3); HCO3 41.7 mmol/L (22.0-26.0); PO2 93.3 mmHg (80.0-100.0); pH 7.343 (7.360-7.450); sO2 96.3 % (92.0-98.0)
[2019-03-08 06:42] LABS: PCO2 78.5 mmHg (35.0-45.0)
--- NOTE | 2019-03-08 08:01 | NUR ---
THIS AM PTS SCHEDULED ABG RESULTS WERE CRITICAL. CONTACTED DR HASSAN AND PULMONARY. PT HAD REFUSED HIS BIPAP. RT WAS FAMILIAR WITH PT AND KNEW THAT HE HAD NOT BEEN WEARING HIS BPAP. PER ORDERS PLACED PT ON BIPAP AND REPEATED ABG ONE HOUR LATER. RESULTS STILL CRITICAL BUT IMPROVING. PAGED PULMANARY. DR HASSAN IN TO SEE PT. DR HASSAN SAID NOT TO REPAGE PULMONARY AT THIS TIME. HELD PT AND OT THIS AM PER ORDERS. RN DEBI WILL CONTINUE TO FOLLOW PT PROGRESS.
[2019-03-08 08:30] VITALS: BP 130/89
--- NOTE | 2019-03-08 09:58 | NUR ---
ASSUMED CARE AT 0700. PATIENT IS ALERT AND ORIENTED. PATIENT QUEVEDO'S, RUG CLEANER ARE EQUA. LUNGS ARE CLEAR,BUT DEMINISHED. 02 AT 6 L PER N/C. ABD IS SOFT WITH BSX4. PATIENT VOIDING YELLOW URINE PER URINAL. PATIENT HAS 4+ EDEMA R/T HIS CHF. PATIENT CONTINUES TO BE DIRURESED. PATIENT CONTINUES ON I/O. FALL AND SAFETY PROTOCOLS IN PLACE. DENIES ANY PAIN. CONTINUES TO PROGRESS SLOWLY TOWARDS D/C GOALS. WILL CONTINUE TO MONITER.
--- NOTE | 2019-03-08 15:35 | NUR ---
DR. MCMAHAN ORDERED D-DIMER LAB TEST. RESULTS CALLED TO DR. MCMAHAN. C.T. ANGIOGRAM ORDERED STAT. S.L. FLUSHED AND INTACT. CR LEVEL TODAY 0.9. C.T. SCAN NOTIFIED OF RESULT. PT RESTING IN BED. 02 SAT 96% ON 7L OF 02 PER N/C. VS STABLE. WILL CONTINUE TO MONITER .
[2019-03-08 19:30] VITALS: BP 126/88
--- NOTE | 2019-03-09 03:50 | NUR ---
PT ASSESSMENT COMPLETED AND VSS. MEDS GIVEN ORDERED AND WELL TOLERATED. FALL PRECAUTIONS IN PLACE. VOIDING LARGE AMOUNT OF DARK YELLOW URINE PER URINAL. BIPAP ON AND CONT 02 SAT MONITOR WNL. PRN PAIN AND SLEEP MEDICATION HELPFUL. WILL CONTINUE TO MONITOR FREQUENTLY.
--- NOTE | 2019-03-09 14:59 | NUR ---
ASSUMED CARE AT APPROX 0715. PATIENT A/O X4. DENIES PAIN. VSS. SATS MAINTAINED ON 7 L O2 PER NC AT REST, UP TO 15L WITH ACTIVITY. DESATED TO 79, RECOVERED QUICKLY WITH REST AND WAS TITRATED DOWN TO 7L, 96% O2 SAT WHEN RESTING. PRIMARY CARE ROUNDED ON PATIENT, NO NEW ORDERS RECEIVED. PCP INFORMED PATIENT TOLERATED BIPAP LAST HS. PATIENT PARTICIPATED IN THERAPY. UP IN RECLINER, ASSIST OF 2 TRANSFER TO [facility]. BM THIS DATE. PATIENT USES URINAL INDEPENDENTLY, STAFF EMPTIES. CONTINOUS SAT MONITOR IN PLACE. FALL PRECAUTIONS IN PLACE. PATIENT CALLS APPROPRIATELY FOR ASSISTANCE. WILL CONTINUE TO MONITOR.
[2019-03-09 16:37] VITALS: BP 142/90
[2019-03-09 19:44] VITALS: BP 141/96
--- NOTE | 2019-03-10 01:11 | NUR ---
PT ALERT AND ORIENTED X 4. VOIDS ADEQUATE AMTS CLEAR DARK YELLOW URINE PER URINAL. 02 ON AT 7L PER NC IN EVENING. BIPAP ON DURING THE NIGHT. PT DENIES PAIN OR DISCOMFORT. BED ALARM ON FOR SAFETY. PT APPEARS TO BE SLEEPING ON HOURLY ROUNDS.
[2019-03-10 08:00] VITALS: BP 127/95
--- NOTE | 2019-03-10 10:43 | NUR ---
PATIENT CARE WAS ASSUMED AT 0715.PATIENT IS ALERT AND ORIENTED X4.PATIENT HAS ISSUES BREATHING WITH ACTIVITY.O2 IS SET AT 10L WHEN RESTING AND CN GO UP TO 15 WITH ACTIVITY.BI PAP IS USE AT NIGHT.IV IS INTACT AND SALINE LOCKED.PATIENT HAS BILATERAL LOWER EXTREMITY EDEMA.PT USES A URINAL AND BSC WITH WITH X1 ASSIST.CALL LIGHT, PHONE, AND PERSONAL BELONGINGS ARE WITHIN REACH.
--- NOTE | 2019-03-10 16:01 | NUR ---
Nutrition: Pt admitted to rehab for severe debility. Admitted to acute care for CHF. Seen for BMI 63=Extreme Class III Obesity. Pt reports good appetite. Current wt 440 lbs, was 458 4/7, 4% loss. On diuretics, may be fluid related. On Na+ restricted diet. Provided education on low Na diet, wt loss and healthy cooking tips. Low nutrition risk.
[2019-03-10 20:48] VITALS: BP 146/99
--- NOTE | 2019-03-11 00:47 | NUR ---
PT ALERT AND ORIENTED X 4. VOIDING ADEQUATE AMTS DARK YELLOW URINE PER URINAL. BIPAP ON DURING THE NIGHT. PT DENIES PAIN OR DISCOMFORT. BED ALARM ON FOR SAFETY. PT CHECKED ON HOURLY ROUNDS.
[2019-03-11 07:28] VITALS: BP 151/103
--- NOTE | 2019-03-11 10:22 | NUR ---
ASSUMED CARE AT 0700. PATIENT IS ALERT AND ORIENTED X4. PATIENT QUEVEDO'S, CONTROL PANEL TESTER ARE EQUAL. LUNGS ARE CLEAR AND DEMINISHED IN THE BASES. PATIENT CONTINUES ON 6L O2 PER N/C. UP TO 15L WITH ACTIVITY. ABD IS SOFT WITH BSX4. PATIENT HAS 3+ EDEMA IN HIS LOWER EXTREMITIES. PATIENT CONTINUES TO BE DIURESED. PATIENT IS UP WITH WALKER AND GAIT BELT WITH P.T. VOIDS CULLEN COLORED URINE PER URINAL. FALL AND SAFETY PROTOCOLS IN PLACE. DENIES PAIN AT THIS TIME. CONTINUES TO PROGRESS TOWARDS D/C GOALS. PATIENT HAS S.L. IN HIS RIGHT AC. S.L. FLUSHES WELL. WILL CONTINUE TO MONITER.
--- NOTE | 2019-03-11 11:21 | H ---
[facility] [place] [address] HISTORY AND PHYSICAL Name: JANEL JONES Room #: 512-P ADM IN M.R.#: [id number] Admission: 03/07/19 ������������������ Attend Phys: Jani Drake MD Discharge: ������������������ Date of : 79 Report #: [id number] THIS REPORT FOR: //name// CC: Jani John DATE OF SERVICE: 03/07/2019 HISTORY OF PRESENT ILLNESS: This is a 43-year-old -[place] morbidly obese male who was admitted to [facility] with worsening shortness of air and diagnosed with an acute exacerbation of his diastolic congestive heart failure. Echo confirmed ejection fraction of 30-35%. He has been followed by Cardiology and on IV diuretics. He is also being evaluated by Pulmonary due to his hypoxia and need of up to 15 liters nasal cannula oxygen while active. He is on room air premorbidly at home. Due to his decline in mobility, he has been admitted to acute inpatient rehabilitation for further therapies and acute medical management. Today, the patient reports shortness of air and cough. He denies chest pain. He denies nausea, vomiting, abdominal pain or constipation. He denies dysuria. He does have right knee pain. Uric acid today revealed 9.5 and he has been started on treatment per primary care doctor. His swelling in his bilateral lower extremities is slowly improving. He reports typical appetite. He does note he is feeling very depressed about his energy and decline in mobility. PAST MEDICAL HISTORY: Congestive heart failure, gout, hypertension, obesity. HABITS: He is a nonsmoker, rare alcohol use. No illicit drug use. SOCIAL HISTORY: The patient lives at home alone in an apartment. He has 3 flights of stairs to get into the apartment and then all living is on 1 level. Utilize no assistive device premorbidly. He denies fall history. 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 He was independent with all ADLs and IADLs. He is right hand dominant. He is still driving. CODE STATUS: Full code. ALLERGIES: No known drug allergies. CURRENT MEDICATIONS: Lovenox 40 mg subQ twice a day, losartan 100 mg daily, potassium chloride 40 mEq daily, metoprolol 150 mg daily, Norvasc 10 mg daily, Aldactone 25 mg daily, Lasix 80 mg IV twice a day, Oxycodone IR 10 mg q.4 hours p.r.n., Ambien 5 mg at bedtime p.r.n., prednisone 40 mg daily x 3 days. REVIEW OF SYSTEMS: Remainder of his 14-point review of systems is negative except as listed in HPI. [address] [address] HISTORY AND PHYSICAL Name: JANEL JONES Pramod Room #: 512-P [facility] IN M.R.#: [id number] Admission: 03/07/19 ������������������ Attend Phys: Jani Drake MD Discharge: ������������������ Date of : 79 Report #: [id number] PHYSICAL EXAMINATION: VITAL SIGNS: Blood pressure 149/83, pulse of 94, temperature 97.5, respirations 20, 94% oxygen saturation on nasal cannula 6 liters. GENERAL: He is awake, alert. He is oriented x 4. He is in no acute distress. HEAD: Normocephalic. EYES: EOMs are intact. No icterus. ENT: No sinus tenderness, no pharyngitis. NECK: No lymphadenopathy. HEART: Regular rate and rhythm, S1, S2. CHEST: Lungs are diminished in the bases. I do not appreciate any significant crackle or wheeze. ABDOMEN: Morbid obesity, bowel sounds are positive, soft, nontender, nondistended. GENITOURINARY: No CVA tenderness. EXTREMITIES: He does have 2+ lower extremity edema from the upper thigh down to his toes. His right knee is very tender. No significant erythema or warmth. He has functional range of motion of bilateral upper extremities. Lower extremity range of motion is slightly limited due to the edema and obesity in his abdomen. He has equal upper extremity study abroad coordinator strength. Upper extremity strength grossly is 4/5. He is able to lift lower extremities antigravity, but not hold position due to pain in his knees and the swelling. He has negative bilateral Homans sign. No foot drop bilateral. Sit to stand with max assist. Min assist, ambulating 70 feet with a front wheel walker. Toileting is max assist. Bathing, mod assist. Lower extremity dressing, max assist. NEUROLOGIC: Cranial nerves 2-12 grossly intact. PSYCHIATRIC: Pleasant affect, but does appear depressed when talking about his medical conditions. ASSESSMENT: 1. Acute exacerbation of diastolic congestive heart failure. 2. Cardiopulmonary rehabilitation. 3. Hypoxia secondary to his congestive heart failure. 4. Acute exacerbation of gout. 5. Obstructive sleep apnea. 6. Morbid obesity. 7. Hypertension. 8. History of deep venous thrombosis. 9. Hypokalemia. 10. Degenerative joint disease. PLAN: The patient has been admitted to acute inpatient rehabilitation for physical and occupational therapies with a goal to return back to his home setting independent. He will have Dr. John following for primary care, medical management. He will have Cardiology and Pulmonary following along as needed. Social work services will be consulted for discharge planning needs. [address] [address] HISTORY AND PHYSICAL Name: JANEL JONES II Room #: 512-P ADM IN M.R.#: [id number] Admission: 03/07/19 ������������������ Attend Phys: Jani Drake MD Discharge: ������������������ Date of : 79 Report #: [id number] He has SCDs and Lovenox for DVT prophylaxis. He will have a team conference next Sunday. Please see extensive orders. ��������������������������������������������� <ELECTRONICALLY SIGNED> ���������������������������������������� By: JAMI Plunkett ��������������������������������������������� 03/11/19 1121 [id number] [id number] JAMI Plunkett /nt
--- NOTE | 2019-03-11 14:25 | NUR ---
team meeting, recommendation: re team with trying to pantera down o2, bedside nurse to see if pt going to need home o2 and pt current using bipap.
--- NOTE | 2019-03-11 15:55 | NUR ---
I have reviewed the documentation by JOANNE MONSALVE from 03/11/19 to 03/11/19 and I concur with it. JUAREZ CARRERO
--- NOTE | 2019-03-11 18:41 | NUR ---
DR MCMAHAN HERE TO SEE PATIENT. PLAN IS TO SEND PATIENT HOME ON AND GET HIS SLEEP STUDY DONE SOON HOME FOR 24 HOURS,THEN GET HIM QUALIFIED FOR C-PAP VS BIPAP VS TRILOGY. CONTINUE PLAN OF CARE
[2019-03-11 19:50] VITALS: BP 142/99
--- NOTE | 2019-03-12 04:28 | NUR ---
PT RESTED GOOD, BIPAP ALL NOC UNTIL NOW, PT JUST USING NC AT 6 L AT THIS TIME, USING URINAL, STILL WITH EDEMA BLE, DENIES PAIN, COOPERATIVE WITH CARE, USING CALL LIGHT APPROPRIATELY, HOURLY ROUNDING, MONITORED.
[2019-03-12 08:00] VITALS: BP 149/106
--- NOTE | 2019-03-12 11:28 | NUR ---
Nutrition: Consulted for [facility] diet instruction. Per nsg, patient needs significant weight loss before receiving possible heart transplant. Provided general weight loss/healthy cooking/heart healthy diet instruction on 03/10. Pt stated today he had no further questions. Gave pt outpatient RD information for additional diet instruction follow up.
--- NOTE | 2019-03-12 11:30 | NUR ---
ASSUMED CARE AT 0700. PATIENT IS ALERT AND ORIENTED X4. PATIENT QUEVEDO'S, SAMPLE STITCHER ARE EQUAL. LUNGS ARE CLEAR AND DEMINISHED. PATIENT CONTINUES ON 02 AT 6 L PER N/C. ABD IS SOFT WITH BSX4. PATIENT IS UP WITH HIS WALKER TO THE BATHROOM TO VOID CULLEN COLORED URINE AND HAVE BM. PATIENT SAT UP ON SIDE OF THE BED FOR MEALS. FALL AND SAFETY PROTOCOLS IN PLACE. DENIES ANY PAIN. CONTINUES TO PROGRESS TOWARDS D/C GOALS. WILL CONTINUE TO MONITER.
--- NOTE | 2019-03-12 12:41 | NUR ---
per report from bedside nurse, dcp was discussed with pulmonary and pt will required home oxygen, then pulmonary office will set up outpt sleep study to get pt cpap or bipap. pt will need to have wt loss and possible heart surgery in future. will cont following as needed for dc need.
--- NOTE | 2019-03-12 16:21 | NUR ---
Pt PARTICIPATED IN COMMUNITY REINTEGRATION ACTIVITY WITH OT ON 03/12/19, PLEASE REFER TO OT DOCUMENTATION
[2019-03-12 19:35] VITALS: BP 154/103
[2019-03-12 22:00] VITALS: BP 131/79
--- NOTE | 2019-03-12 23:49 | NUR ---
PT ASSESSMENT COMPLETED AND VSS. MEDS GIVEN ORDERED AND WELL TOLERATED. FALL PRECAUTIONS IN PLACE. UP TO THE BATHROOM WITH ASST/GAIT/WALKER. VOIDING LARGE AMOUNT OF DARK YELLOW URINE PER URINAL. SAT WNL ON NC. BIPAP ON AT HS AND TOLERATING AT THIS TIME. SLEEPING WELL AFTER SLEEP MEDICATION. PRN PAIN MEDICATION WORKING WELL FOR KNEE PAIN. WILL CONTINUE TO MONITOR FREQUENTLY.
[2019-03-13 07:49] VITALS: BP 153/104
[2019-03-13 11:10] VITALS: BP 146/103
--- NOTE | 2019-03-13 18:05 | NUR ---
ASSUMED CARE OF PATIENT AT APPROXIMATELY 0720. PATIENT IS A&OX4. BLOOD PRESSURE WAS ELEVATED THIS MORNING. PHYSICIAN WAS CONTACTED BY PHONE BY THIS NURSE. ORDERS WERE GIVEN TO OBTAIN BNP AND PROVIDER ASSESSED PATIENT ON THE FLOOR DURING THE SHIFT. NURSE INSTRUCTED TO TALK TO RT ABOUT OBTAINING NEW MASK FOR BIPAP MACHINE OR INCREASE HUMIDITY, NO FURTHER ORDERS WERE GIVEN. PATIENT REMAINED ASYMPTOMATIC OF HYPERTENSION DUIRNG SHIFT. PATIENT DENIED PAIN AND PARTICIPATED IN SCHEDULED THERAPY SESSIONS. PATIENT REQUIRES 1-2 PERSON ASSIST WITH GAIT BELT AND WALKER. PATIENT IS ON 4 LITERS OF OXYGEN VIA NASAL CANULA. FALL PRECAUTIONS IN PLACE AND NURSING WILL CONTINUE TO MONITOR PATIENT.
[2019-03-13 20:35] VITALS: BP 160/92
--- NOTE | 2019-03-14 00:44 | NUR ---
PT ASSESSMENT COMPLETED AND VSS. MEDS GIVEN ORDERED AND WELL TOLERATED. FALL PRECAUTIONS IN PLACE. UP TO THE BATHROOM WITH ASST/GAIT. STEADY. VOIDING LARGE AMOUNT OF DARK YELLOW URINE. SAT WNL ON 4L NC. SLEEPING WELL. WILL CONTINUE TO MONITOR FREQUENTLY.
--- NOTE | 2019-03-14 09:56 | NUR ---
I have reviewed the documentation by JOANNE MONSALVE from 03/14/19 to 03/14/19 and I concur with it. JUAREZ CARRERO
--- NOTE | 2019-03-14 15:01 | NUR ---
SLEEP LAB CONTACTED REGARDING SETTING UP SLEEP STUDY DAY AFTER DISCHARGE. SPOKE TO THOMAS IN SLEEP LAB, SETTING UP PRIOR AUTH FOR STUDY, WILL CALL BACK WITH UPDATES. STUDY IS SET UP TENTATIVELY FOR Sunday AT 7:30 PM.
--- NOTE | 2019-03-14 16:33 | NUR ---
I have reviewed the documentation by JOANNE MONSALVE from 03/14/19 to 03/14/19 and I concur with it. JUAREZ CARRERO
--- NOTE | 2019-03-14 19:44 | NUR ---
ASSUMED CARE AT APPROX 0715. PATIENT A/O X4. DENIES PAIN. VOIDING LARGE AMOUNTS OF URINE. PATIENT PARTICIPATED IN THERAPY. EVALUATED BY THERAPY AND MADE MOD I IN ROOM PER PHSYCIAN ORDER. O2 SATS MAINTAINED ON 4 L PER NC. PATIENT CONTINUING TO CALL FOR ASSISTANCE APPROPRIATELY. SLEEP STUDY INITIALIZED PER SLEEP LAB, AWAITING AUTH. VERBALIZES CORRECTLY WHEN TO CALL FOR ASSISTANCE IF FEELING SHORT OF BREATH. RESTING IN BED AT CHANGE OF SHIFT.
[2019-03-14 20:42] VITALS: BP 155/104
--- NOTE | 2019-03-15 03:03 | NUR ---
assumed care at approx 1900 evening 03/14. pt alert and oriented x4 sitting up in bed at change of shift. pt in fairly good mood glad that he can be up on his own in room. 02 at 4l per n/c. pt refusing to wear cpap stating he is waiting for a new mask to be ordered. continuous pulse oximeter in place alarming when sats reach 85% or lower. explained to pt that because 02 level drops that is why it alarms. pt states he cannot sleep. paged resp, suggestion to turn up to 5l. will try and continue to monitor. call light in reach.
[2019-03-15 08:28] VITALS: BP 158/118
--- NOTE | 2019-03-15 10:46 | NUR ---
PT IS MODIFIED INDEPENDENT IN ROOM AND WAS ASSISTED BY OT TO THE SHOWER THIS AM. PT DENIED PAIN, AND WA SON 4L O2 WITH SAT 97% AND NO DYSPNEA. WEANING O2 TOLERATED TODAY WHILE UP, BUT NOTED IN AM SHIFT CHANGE REPORT THAT PT WAS DESATTING TO 85% FREQUENTLY IN THE NIGHT. HE HAD BEEN INCREASED TO 5L AND IS NOW BACK TO 4L. BP NOTED TO BE HIGH THIS AM AND RECHECKING NOW. SEE VITAL SHEET.
[2019-03-15 11:15] VITALS: BP 149/93
--- NOTE | 2019-03-15 16:02 | NUR ---
AAOX4 VERY PLEASANT AND COOPERTIVE. VISITING WITH FAMILY. NO C/O PAIN. PROGRESSING TOWARD GOALS.
[2019-03-15 20:10] VITALS: BP 154/100
--- NOTE | 2019-03-16 01:48 | NUR ---
PT ALERT AND ORIENTED X 4. MODIFIED INDEPENDENT IN ROOM WITHOUT DIFFICULTY. PT C/O PAIN IN RIGHT KNEE. OXYCODONE GIVEN AT HS ALONG WITH AMBIEN PER PT REQUEST. 02 ON AT 4L PER NC CONT. PT CHECKED ON HOURLY ROUNDS.
[2019-03-16 08:40] VITALS: BP 153/95
--- NOTE | 2019-03-16 13:39 | NUR ---
ASSUMED CARE AT APPROX 0715. PATIENT A/O X4. DENIES PAIN. VSS. UP MOD IN IN ROOM. CALLS FOR ASSISTANCE APPROPRIATELY. SATS MAINTAINED ON 3L THIS DATE. PATIENT TOLERATING AMBULATING ROUND ROOM ON 3L O2. PCP ROUNDED ON PATIENT THIS DATE, REPORTED TO PHYSICIAN THAT PATIENT USED NC OVER CPAP LAST EVENING, NO NEW ORDERS. DIURETICS ADMINSITERED PER ORDERS, PATIENT REPORTS VOIDING WELL AND BM THIS DATE. RESTING IN BED, VISITORS AT BEDSIDE. WALKWAY CLEAR OF OBSTACLES. WILL CONTINUE TO MONITOR.
[2019-03-16 19:45] VITALS: BP 156/99
--- NOTE | 2019-03-17 01:04 | NUR ---
PT ALERT AND ORIENTED X 4. MODIFIED INDEPENDENT IN ROOM WITHOUT DIFFICULTY. 02 ON AT 3L PER NC CONT. PT C/O PAIN IN RIGHT KNEE. OXYCODONE GIVEN AT HS. AMBIEN ALSO GIVEN AT HS. BIPAP ON DURING THE NIGHT. PT APPEARS TO BE SLEEPING ON HOURLY ROUNDS.
[2019-03-17 09:48] VITALS: BP 131/94
--- NOTE | 2019-03-17 10:03 | NUR ---
PT UP AFTER BREAKFAST FOR THERAPY IN THERAPY ROOM. PT W/O PAIN B/P 131/94 PT PLEASANT AND COOPERATIVE WITH CARE. PATIENT'S DAD HERE TO VISIT HIM.
--- NOTE | 2019-03-17 10:53 | NUR ---
CALLED DR SWANSON OFFICE TO NOTIFY THAT DR RODRÍGUEZ PUT IN MISCELLANEEOUS MESSAGE IN TO NOTIFY DR HASSAN THAT PLAN IS FOR D/C HOME ON SUNDAY WITH OUTPT SLEEP STUDY AFTER THAT. SPOKE WITH DR SWANSON STAFF WHO WILL GIVE HIM THE MESSAGE.
--- NOTE | 2019-03-17 12:17 | NUR ---
CALLED DR BAXTER OFFICE PER DR RODRÍGUEZ TO LET HIM KNOW THAT PATIENT TO DISCHARGE [facility] 03/19/19 AND WILL HAVE OUTPT SLEEP STUDY AFTER THAT.
--- NOTE | 2019-03-17 14:56 | NUR ---
PT RESTING IN BED, GIVEN PRN PAIN MED AT THIS TIME FOR RIGHT KNEE PAIN, HAS BEEN WORKING HARD AT THERAPY, ALSO AMBULATING THE HALLS.
[2019-03-17 19:11] VITALS: BP 144/92
--- NOTE | 2019-03-18 00:54 | NUR ---
PT ASSESSMENT COMPLETED AND VSS. MEDS GIVEN ORDERED AND WELL TOLERATED. FALL PRECAUTIONS IN PLACE. UP TO THE BATHROOM - STEADY. SAT WNL ON NC. PT DID NOT WEAR BIPAP THIS EVENING WHICH IS OPTIONAL FOR PT. PT DENIES PAIN AT THIS TIME. SLEEPING WELL. WILL CONTINUE TO MONITOR FREQUETLY.
[2019-03-18 07:30] VITALS: BP 129/90
--- NOTE | 2019-03-18 13:03 | NUR ---
team meeting, recommendation : home o2, outpt sleep study on . dc home . needing o2 script. made mod I with o2 in room. possible pulmonary outpt rehab. will cont to follow as needed for dc needs.
--- NOTE | 2019-03-18 15:08 | NUR ---
ASSUMED CARE OF PT AT 0700. ASSESSMENT CHARTED. DENIES PAIN. [address] DENIES SOA OR CHEST PAIN. UP AD COY IN ROOM. WORKED WITH THERAPY TODAY. PLAN TO D/C TOMORROW. VSS. PT STATES NO CONCERNS.
--- NOTE | 2019-03-18 16:56 | NUR ---
FAXED REFERRAL TO [facility] FOR HOME O2 AND PORT. O2 TANK SPOKE WITH JONG AT [facility] AND SHE WILL DELIVER O2 TO PT TOMORROW 03/19.
--- NOTE | 2019-03-18 17:44 | NUR ---
RESUMED PT CARE AT 1600. PT C/O LEFT KNEE PAIN 07/05, GAVE PRN OXYCODONE AND PRN TYLENOL PER REQUESTS. ATE 100% DINNER. ON 2L OF OXGYEN. REPORT HAD GOOD BM THIS AM. UP M.I WITHOUT DEVICE AND LOOKING FORWARD TO GO HOME TOMORROW. REPORTS SLEEP GOOD AND HAS BEEN ENJOY THERAPY HERE. REPORT SLEEP GOOD. HAS NO QUESTION AND CONCERN AT THIS MOMENT. EDEMA DOWN BLE. GIVE WILL REPORT TO NIGHT NURSE TO CONTINUE TO MONITOR.
[2019-03-18 20:16] VITALS: BP 131/73
--- NOTE | 2019-03-19 05:50 | NUR ---
USING O2 OVERNIGHT AND SLEEPING WELL. ASKED FOR TYLENOL AND OXY FOR LEFT KNEE PAIN 8/10 THIS MORNING. SUGGESTED HE COULD TRY TAKING SIMILAR DOS PRIOR TO THERAPY WITH THE THINKING THAT HE MAY BE ABLE TO A LITTLE BIT MORE. PLANS DISMISSAL TODAY ABOUT 1500 WHEN HIS FATHER GETS OFF WORK
[2019-03-19 08:11] VITALS: BP 151/80
--- NOTE | 2019-03-19 09:11 | NUR ---
cm notified by bedside that pulmonary, had not let rx for home o2. cm notified pcp and went to pcp office to pickle maker script for home o2. cm team to send rx to [facility] and oxygen to be deliver today prior to dc home today.
[2019-03-19 09:38] VITALS: BP 151/80
[2019-03-19 11:14] VITALS: BP 151/80
[2019-03-19 13:41] VITALS: BP 151/80
[2019-03-19] MEDS ORDERED: COZAAR100 MG PO (16:09)
[2019-03-19] MEDS ORDERED: METOPROLOL SUCC50 MG PO (16:09)
[2019-03-19] MEDS ORDERED: SPIRONOLACTONE25 M1 PO (16:09)
[2019-03-19] MEDS ORDERED: AMLODIPINE BESYL5 M1 PO (16:09)
--- NOTE | 2019-03-19 18:27 | NUR ---
ASSUMED CARE OF PATIENT AT 0715. PATIENT IS A&OX4 AND VITAL SIGNS ARE STABLE. PATIENT IS MODIFIED INDEPENDENT IN ROOM. PATIENT REPORTS INCREASED PAIN 7/10 IN HIS LEFT KNEE THIS SHIFT AND WAS TREATED WITH MEDICAITON ORDERED. ORDERS FOR DISCHARGE TODAY. PATIENT SIGNED DISCHARGE PAPERWORK, WAS GIVEN DISCHARGE EDUCATION HANDOUTS WHICH WERE DISCUSSED WITH THE NURSE. INFORMATION ABOUT SLEEP STUDY SCHEDULED FOR 03/20 GIVEN TO PATIENT WELL PACKET FAXED BY SLEEP LAB CONTAINING FORMS AND INSTRUCTIONS FOR TEST. PATIENT DISCHARGED AT APPROXIMATELY 1630 WITH PRESCRIPTION SCRIPTS, OXYGEN, AND BELONGINGS. PATIENT'S FATHER PRESENT AT DISCHARGE. PATIENT AND FATHER ASSISTED TO MAIN ENTERANCE BY TRANSPORT TEAM IN .
--- NOTE | 2019-03-21 13:20 | H ---
[facility] [place] [address] HISTORY AND PHYSICAL Name: JANEL JONES II Room #: 512-P [facility] IN M.R.#: [id number] Admission: 03/07/19 ������������������ Attend Phys: Jani Drake MD Discharge: 03/19/19 ������������������ Date of : 79 Report #: [id number] THIS REPORT FOR: //name// CC: Jani John DATE OF SERVICE: 03/07/2019 HISTORY OF PRESENT ILLNESS: The patient was originally admitted to [facility] on 03/01/2019 with worsening shortness of air and diagnosed with an acute exacerbation of diastolic congestive heart failure. The patient is an -Maldivian morbidly obese male. Echocardiogram confirmed an ejection fraction of 30-35%. He was followed by Cardiology and placed on IV diuretics and also evaluated by Pulmonary with his hypoxia needed up to 15 liters nasal cannula oxygen. He also had some right knee discomfort. Uric acid was elevated at 9.5 and he was started on treatment as per his primary care doctor. Lower extremity swelling slowly improving. He was noted to have significant functional mobility and ADL deficits and has been admitted for acute in-hospital inpatient rehabilitation. Past medical history, habits, social history, code status, and allergies are all per the history and physical. MEDICATIONS: Please see the full medication listing. This includes vitamins, herbals, and supplements. REVIEW OF SYSTEMS: Some frustration with his current condition. Did not use his BiPAP last night per report. Ended up being placed back on with improvement in his pCO2. Plan is to resume therapy once off the BiPAP. He is continued with his diuresis. He has right knee discomfort and is being treated for gout as noted. PHYSICAL EXAMINATION: VITAL SIGNS: Last recorded temperature 36.6, pulse 88, respirations 18, and blood pressure 130/89. Some frustration again is noted. NECK: Supple. HEENT: Appeared to be benign when the patient was seen earlier. CHEST: Clear anteriorly. CARDIOVASCULAR: Regular rate and rhythm. ABDOMEN: Bowel sounds positive, obese. EXTREMITIES: A 2+ lower extremity edema does have evidence of venous stasis changes. ASSESSMENT: 1. Acute exacerbation of diastolic congestive heart failure. [address] [address] HISTORY AND PHYSICAL Name: JANEL JONES Room #: 512-P [facility] IN ..#: [id number] Admission: 03/07/19 ������������������ Attend Phys: Jani Drake MD Discharge: 03/19/19 ������������������ Date of : 79 Report #: [id number] 2. Cardiopulmonary rehabilitation. 3. Hypoxia secondary to congestive heart failure. 4. Acute exacerbation of gout. 5. Obstructive sleep apnea. 6. Morbid obesity. 7. Hypertension. 8. History of deep venous thrombosis. 9. Hypokalemia. 10. Degenerative joint disease. PLAN: From a post-admission physician evaluation perspective, there are no relevant changes since the preadmission screening. Please see the above review of prior and current medical and functional conditions and comorbidities. See the history and physical, which has been documented. As far as risk of complications, he has multiple medical comorbidities as noted above. Initial plan of care involves the interdisciplinary acute inpatient rehabilitation program with goal of maximizing his functional independence. Measurable functional goals would be for the patient to become modified independent with transfers, mobility, ADLs. He can hopefully return back to his prior living situation. Prognosis is reasonably good with estimated length of stay at least 1-2 weeks pending progress. Potential barriers would include his multiple medical comorbidities and decreased functional status. The patient will have the data migration consultant physicians continue to follow and he is on the acute inpatient rehab lam. ADDENDUM The overall plan of care is based on the preadmission screen, post-admission physician evaluation and information garnered from therapy assessments. He has been max assist with basic transfers, ambulating 30 feet min assist with a front-wheeled walker. He has been on the BiPAP, but yesterday was on 5 liters nasal cannula. 1. Estimated length of stay is probably 1-2 weeks. 2. Medical prognosis is reasonably good. 3. Anticipated interventions includes the interdisciplinary acute inpatient rehabilitation program. 4. Anticipated functional outcomes would be for the patient to become modified independent with transfers, mobility and ADLs and to improve as far as his Pulmonary and cardiac condition, so that he can return back to the home setting. 5. Discharge destination would be back to his apartment, 30 steps. He may need to consider other options in the interim. 6. Expected therapy by discipline includes PT and OT 1-1.5 hours per day each [address] [address] HISTORY AND PHYSICAL Name: KARENJANEL J II Room #: 512-P [facility] IN ..#: [id number] Admission: 03/07/19 ������������������ Attend Phys: Jani Drake MD Discharge: 03/19/19 ������������������ Date of : 79 Report #: [id number] five days a week throughout the duration of the acute inpatient rehabilitation stay. ��������������������������������������������� <ELECTRONICALLY SIGNED> ���������������������������������������� By: Jani Drake MD ��������������������������������������������� 03/21/19 1320 0936 1112 Jani Drake MD /nt
== END 2019-03-19 17:00 | disposition home or self-care (01) | DRG 291 ==
LOC: ENTRNSPT 03-19 16:28
PROVIDERS: Family Medicine; Nurse Practitioner Family; Pediatrics; ADMIT Physical Medicine & Rehabilitation
DX: I11.0 Hypertensive heart disease with heart failure (principal); J96.21 Acute and chronic respiratory failure with hypoxia; J96.22 Acute and chronic respiratory failure with hypercapnia; Z68.43 Body mass index [BMI] 50.0-59.9, adult; R53.81 Other malaise; E66.01 Morbid (severe) obesity due to excess calories; M10.9 Gout, unspecified; Z60.2 Problems related to living alone; G47.33 Obstructive sleep apnea (adult) (pediatric); E87.6 Hypokalemia; I50.43 Acute on chronic combined systolic (congestive) and diastolic (congestive) heart failure; M17.11 Unilateral primary osteoarthritis, right knee; G31.84 Mild cognitive impairment of uncertain or unknown etiology; D64.9 Anemia, unspecified; Z86.718 Personal history of other venous thrombosis and embolism; Z79.01 Long term (current) use of anticoagulants; Z79.899 Other long term (current) drug therapy
CPT/HCPCS: 10112

== ENCOUNTER → 2019-03-20 | Outpatient (CLI) | payer OTHER ==
[~2019-03-20] MED LIST changes: +AMBIEN 5 MG TABL5 M1 PO; +AMLODIPINE BESYL5 M1 PO; +COZAAR100 MG PO; +ENOXAPARIN40 MG/0.1 SUBQ; +METOPROLOL SUCC50 MG PO; +OXYCODONE HCL 55 MG PO; +PREDNISONE 20 M20 M1 PO; +SPIRONOLACTONE25 M1 PO
--- NOTE | 2019-03-25 07:15 | SLE ---
[facility] [place] [address] POLYSOMNOGRAPHY STUDY Name: JANEL JONES MINH Room #: REG [facility]#: [id number] Admission: 03/20/19 ������������������ Attend Phys: Romaine Tillman MD Discharge: ������������������ Date of : 79 Report #: [id number] THIS REPORT FOR: //name// CC: Romaine John DATE OF SERVICE: 03/24/2019 ATTENDING PHYSICIAN: Dr. Devin Odell. The patient is a 71-year-old who weighs 418 pounds with a BMI of 56.7. The patient underwent a split night study performed at [facility]. The patient's [place] score was 5. During the night study, the patient spent 395 minutes in bed and slept for 344 minutes with a sleep efficiency of 87%. Sleep latency was 8.3 minutes with a REM latency of 19.8 minutes, which was short. Overall sleep architecture showed increased stage 1 sleep, normal stage 2 sleep, absent N3, normal REM sleep. During the initial diagnostic portion of the study, the patient spent 161 minutes in bed and slept for 138 minutes. During this time, the patient was noted to have severe sleep apnea. The patient had a total of 261 apneas. There were 129 obstructive, 89 mixed and 43 central apneas. The patient's apnea-hypopnea index was 146.9 per hour with a REM index of 100 per hour and a supine index of 146 per hour. EKG monitoring revealed an average heart rate of 106 beats per minute with a maximum recorded of 179 beats per minute.( artifact) It was sinus tachycardia. PLMS were not observed. Nocturnal oximetry study during the diagnostic portion revealed an average oxygen saturation of 81% and lowest oxygen saturation of 47%. 77 minutes were spent in oxygen saturation of less than 89% and 37 minutes with saturation of less than 79% and another 30 minutes with saturation of less than 69%. The patient met the criteria for CPAP initiation, which was started at 10 cm of water and titrated up to 18 cm water. However, due to persistent respiratory events, the patient was switched to BiPAP starting at 20/15 and titrated up to 26/19. Overall, the patient did have complete resolution of her obstructive events, but hypopneas still persist. However, there was limited time spent with higher BiPAP pressure, as a result optimum BiPAP pressure was not achieved. At a final BiPAP pressure of 20/19, the patient had only 8.9 minutes of sleep and AHI was 47 per hour due to 7 hypopneas. There were no obstructive or central apneas. Oxygen saturations remained above 88% with few desaturations in the mid to low 80s. Optimum CPAP/BiPAP pressure was not achieved on this split night [facility] [address] [place] [address] POLYSOMNOGRAPHY STUDY Name: JANEL JONES Pramod WILKINSON Room #: REG [facility] Iliana#: [id number] Admission: 03/20/19 ������������������ Attend Phys: Romaine Tillman MD Discharge: ������������������ Date of : 79 Report #: [id number] study. IMPRESSION: 1. Severe sleep apnea-hypopnea syndrome at an AHI of 146 per hour. 2. No clinically significant PLMS. 3. Nocturnal hypoxia secondary to obstructive sleep apnea, improved with BiPAP. 4. Abnormal EKG with sinus tachycardia throughout. RECOMMENDATIONS: 1. Optimum CPAP/BiPAP pressure was not achieved on this split night study. The patient reached the maximum pressure of 26/19; however, there was limited time in higher BiPAP pressures. At this time, I would recommend the patient to return to the sleep lab for a full night BiPAP titration study starting at a BiPAP pressure of 20/16 and following the protocol. Once optimum BiPAP pressure is achieved, then follow up in 4-6 weeks to assess compliance with BiPAP and to document clinical improvement. 2. Weight loss was strongly advised. 3. Avoid SHELL WORKER depressants. 4. Cautioned regarding driving until symptoms of sleep apnea resolved with positive pressure therapy. 5. Follow up with cardiology regarding abnormal EKG. ��������������������������������������������� <ELECTRONICALLY SIGNED> ���������������������������������������� By: Romaine Tillman MD ��������������������������������������������� 03/25/19 0715 1704 2234 Romaine Tillman MD /nt
== END ==
LOC: SLEEPLAB 10:17
DX: G47.33 Obstructive sleep apnea (adult) (pediatric) (principal); G47.34 Idiopathic sleep related nonobstructive alveolar hypoventilation; Z68.43 Body mass index [BMI] 50.0-59.9, adult

== ENCOUNTER 2020-09-14 13:25 | Emergency (ER) | payer OTHER ==
[~2020-09-14] VITALS: Ht 180.3 cm; Wt 187.3 kg
[2020-09-14 14:19] LABS: ABSOLUTE NEUTROPHILS 4.6 thou/uL (1.4-8.2); BASOPHILS 0.8 % (0.0-2.0); EOSINOPHILS 3.9 % (0.0-3.0); HEMOGLOBIN 11.8 gm/dL (14.0-18.0); LYMPHOCYTES 20.6 % (24.0-44.0); MCH 31.2 pg (26.0-34.0); MCHC 33.6 g/dL (28.0-37.0); MCV 92.8 fL (80.0-100.0); MONOCYTES 9.4 % (1.0-8.0); PLATELET COUNT 249 thou/uL (150-400); POLYS 65.3 % (36.0-66.0); RBC 3.77 mil/uL (4.50-6.00); RDW 14.5 % (10.5-14.5); WBC 7.1 thou/uL (4.0-11.0)
[2020-09-14 14:43] LABS: ANION GAP 5 mmol/L (7-16); BUN 10 mg/dL (7-18); CALCIUM 8.9 mg/dL (8.5-10.1); CHLORIDE 99 mmol/L (98-107); CO2 34 mmol/L (21-32); CREATININE 0.9 mg/dL (0.7-1.3); GLUCOSE 218 mg/dL (74-106); SODIUM 138 mmol/L (136-145); TROPONIN-I <0.06 ng/mL (<0.06)
[2020-09-14 14:45] LABS: POTASSIUM 2.9 mmol/L (3.5-5.1)
[2020-09-14 14:58] LABS: ALBUMIN 2.8 g/dL (3.4-5.0); DIRECT BILIRUBIN 0.2 mg/dL (<0.1-0.2); TOTAL BILIRUBIN 0.5 mg/dL (0.2-1.0); TOTAL PROTEIN 8.2 g/dL (6.4-8.2)
--- NOTE | 2020-09-14 15:38 | EKG ---
[facility] [address] ELECTROCARDIOGRAM REPORT Name: JANEL JONES Room #: REG [facility].#: [id number] Admission: 09/14/20 Attend Phys: Discharge: Date of : 79 Report #: [id number] THIS REPORT FOR: cc: Moe John MD, Neal A. MD Santiago, Patrick MD [facility] THIS REPORT FOR: //name// [facility] ED Test Date: 2020-09-14 Test Time: 14:03:11 Pat Name: JANEL JONES Department: Room: Gender: Benefits Coordinator: : 1975 Requested By: Jose Arredondo Order Number: [id number] MD: Parvez Goldberg Measurements Intervals [place] Rate: 90 P: 27 NM: 174 QRS: -27 QRSD: 110 T: 65 QT: 379 QTc: 464 Interpretive Statements Sinus rhythm Borderline left axis deviation Abnormal R-wave progression, late transition Compared to ECG 03/03/2019 08:38:41 Atrial abnormality no longer present Electronically Signed On 09-14-2020 15:38:42 CDT by Parvez Goldberg [email or web address] <ELECTRONICALLY SIGNED> By: Parvez Goldberg MD, FACC 09/14/20 1538 1403 1403 Parvez Goldberg MD, FACC /EPI
[2020-09-14] MEDS ORDERED: METFORMIN HCL500 M3 PO (16:54)
[2020-09-14] MEDS ORDERED: TRAZODONE HCL50 MG PO (16:54)
[2020-09-14] MEDS ORDERED: NORVASC5 MG PO (16:55)
[2020-09-14] MEDS ORDERED: POTASSIUM20 PO (18:50)
[2020-09-14 19:11] VITALS: BP 142/89
== END 2020-09-14 19:12 | disposition home or self-care (01) ==
LOC: ER 13:25
PROVIDERS: Emergency Medicine
DX: R60.9 Edema, unspecified (principal); E87.6 Hypokalemia; I11.0 Hypertensive heart disease with heart failure; I50.9 Heart failure, unspecified; M10.9 Gout, unspecified; Z79.899 Other long term (current) drug therapy; Z87.891 Personal history of nicotine dependence

== ENCOUNTER 2020-09-29 11:39 | Inpatient (IN) | payer OTHER ==
[~2020-09-29] VITALS: Ht 180.3 cm; Wt 185.5 kg
[~2020-09-29 11:39] MED LIST changes: +METFORMIN HCL500 M3 PO; +NORVASC5 MG PO; +POTASSIUM20 PO; +TRAZODONE HCL50 MG PO
[2020-09-29 11:42] VITALS: BP 121/75
[2020-09-29 13:02] LABS: HEMATOCRIT 35.6 % (42.0-52.0); MCH 31.2 pg (26.0-34.0); MCHC 33.8 g/dL (28.0-37.0); MCV 92.3 fL (80.0-100.0); PLATELET COUNT 268 thou/uL (150-400); RBC 3.86 mil/uL (4.50-6.00); RDW 14.4 % (10.5-14.5); WBC 7.7 thou/uL (4.0-11.0)
[2020-09-29 13:05] LABS: ANION GAP 10 mmol/L (7-16); BUN 13 mg/dL (7-18); CALCIUM 9.2 mg/dL (8.5-10.1); CHLORIDE 100 mmol/L (98-107); CO2 31 mmol/L (21-32); GLUCOSE 168 mg/dL (74-106); POTASSIUM 3.5 mmol/L (3.5-5.1); SODIUM 141 mmol/L (136-145)
[2020-09-29 13:15] LABS: ALBUMIN 2.8 g/dL (3.4-5.0); MAGNESIUM 1.7 mg/dL (1.8-2.4); SGOT 23 U/L (15-37); SGPT 14 U/L (30-65); TOTAL BILIRUBIN 0.4 mg/dL (0.2-1.0); TOTAL PROTEIN 8.5 g/dL (6.4-8.2); TROPONIN-I <0.06 ng/mL (<0.06)
[2020-09-29 13:16] LABS: BE(vivo) 1.1 mmol/L (-2 to +3); HCO3 25.7 mmol/L (22.0-26.0); PCO2 40.9 mmHg (35.0-45.0); pH 7.416 (7.360-7.450); sO2 97.1 % (92.0-98.0)
[2020-09-29 13:20] LABS: APTT 34.2 Seconds (24.5-32.8); D-DIMER 1.55 ug/mLFEU (0.19-0.50); INR 1.1; PROTIME 10.8 Seconds (9.3-11.4)
[2020-09-29 13:58] LABS: ABSOLUTE NEUTROPHILS 4.2 thou/uL (1.4-8.2); PLATELET ESTIMATE NORMAL
--- NOTE | 2020-09-29 14:17 | EKG ---
[facility] [place] [address] ELECTROCARDIOGRAM REPORT Name: AJNEL JONES Room #: REG [facility].#: [id number] Admission: 09/29/20 Attend Phys: Discharge: Date of : 79 Report #: [id number] THIS REPORT FOR: cc: Moe Jonh MD, Neal A. MD Santiago, Patrick MD [facility] ~ THIS REPORT FOR: //name// [facility] ED Test Date: 2020-09-29 Test Time: 13:53:03 Pat Name: JANEL JONES Department: Room: Gender: Container Finishing Inspector: [facility] : 1975 Requested By: Bipin Armijo Order Number: [id number] MD: Parvez Goldberg Measurements Intervals [place] Rate: 101 P: 31 OR: 168 QRS: -34 QRSD: 103 T: 109 QT: 359 QTc: 466 Interpretive Statements Sinus tachycardia Probable left atrial enlargement Left axis deviation Abnormal R-wave progression, late transition Borderline T wave abnormalities Compared to ECG 09/14/2020 14:03:11 T-wave abnormality now present Sinus rhythm no longer present Electronically Signed On 09-29-2020 14:17:03 PUBLIC INTERVIEWER by Parvez Goldberg [email or web address] <ELECTRONICALLY SIGNED> By: Parvez Goldberg MD, FACC 09/29/20 1417 1353 1353 Parvez Goldberg MD, FACC /EPI
[2020-09-29 19:49] VITALS: BP 123/81
[2020-09-29 20:47] VITALS: BP 146/99
[2020-09-29 21:20] VITALS: BP 14/102
--- NOTE | 2020-09-30 02:44 | NUR ---
admitted to floor tonight. pt had pain to left hip and leg at time of admission. he just wanted to rest. oriented to room and surroundings. careplan started.
[2020-09-30 04:05] VITALS: BP 148/89
--- NOTE | 2020-09-30 04:21 | NUR ---
Positive covid-19 reported from lab on 09/30/20 at 0340.
--- NOTE | 2020-09-30 04:25 | NUR ---
stated that his pain is ok when just resting. notified patient of covid -19 status. up to restroom independant. no complaints at this time.
[2020-09-30 07:58] VITALS: BP 148/102
--- NOTE | 2020-09-30 10:00 | NUR ---
Nutrition: consulted for DM. Howver, no noted of this is med hx; pt denied dx of DM. No A1C, BG was 168. Solumedrol and other meds reviewed. Wt down from admit in 2019 when pt was given wt loss education. Pt reported he has been following this diet and has no further needs at this time. Pt reports good appetite and intake. Albumin 2.8. BMI indicates class III morbid obesity. Assessed at low nutrition risk at this time. Order CHO controlled diet if desired.
[2020-09-30 11:42] VITALS: BP 150/103
--- NOTE | 2020-09-30 15:44 | NUR ---
ASSUMED CARE OF PT AT 0700. PT AOX4 IN NO ACUTE DISTRESS. COMPLAINS OF SCIATICA PAIN FROM LEFT HIP DOWN TO ANKLE - GOOD RELIEF WITH MED REGIMEN. DIURESING PER CARDIO. OUTPUT CHARTED. UP AD COY IN ROOM. SHOWERED. RESWABBED FOR COVID PER ORDER. WCM.
[2020-09-30 16:10] VITALS: BP 155/99
--- NOTE | 2020-09-30 16:32 | NUR ---
INITIAL ASSESSMENT: SW reviewed chart and spoke with nursing. Pt was admitted from home due to CHF. Pt placed in Enhanced Isolation due to having COVID positive test. Pt is afebrile and not requiring O2. Pt is on IV steroids and IV lasix. SW spoke with pt via phone. Introduced role of SW. Pt is alert/orientated x 4. Pt reports he lives at home. Prior to admission, pt was independent with ADLs. Pt has home O2 through [facility]. No hx of services. Pt has been to [facility] for rehab. Pt's PCP is Dr. John. Plan is for pt to discharge home when medically stable. SW is following to assist as needed with discharge planning.
[2020-09-30 19:05] VITALS: BP 136/98
--- NOTE | 2020-10-01 04:32 | NUR ---
RESING QUIETLY TONIGHT. PAIN TO LEFT LEG CONTROLLED WITH TE MORPHINE, HAS TAKEN ONE DOSE THIS SHIFT. AFEBRILE, COMFORTABLE WITH HIS BREATHING, CONTINUES ON ROOM AIR. NO CONCERNS VOICED.
[2020-10-01 05:07] VITALS: BP 162/99
[2020-10-01 06:24] LABS: HEMATOCRIT 35.6 % (42.0-52.0); HEMOGLOBIN 11.8 gm/dL (14.0-18.0); MCH 30.6 pg (26.0-34.0); MCHC 33.2 g/dL (28.0-37.0); MCV 92.2 fL (80.0-100.0); RBC 3.86 mil/uL (4.50-6.00); RDW 14.3 % (10.5-14.5); WBC 7.1 thou/uL (4.0-11.0)
[2020-10-01 06:31] LABS: CALCIUM 9.4 mg/dL (8.5-10.1); CREATININE 0.9 mg/dL (0.7-1.3)
[2020-10-01 07:07] VITALS: BP 155/105
[2020-10-01 11:37] VITALS: BP 139/93
--- NOTE | 2020-10-01 13:27 | NUR ---
SW reviewed chart and spoke with nursing and attending physician. Pt remains in Enhanced Isolation due to COVID-19. Pt is afebrile and not requiring O2. Pt is on IV abx and IV steroids. ID consulted re: treatment course. PT/OT evaluated pt and have discharged pt from their service. Plan is for pt to return home when medically stable. JOSE FRANCISCO is following to assist as needed with discharge planning.
--- NOTE | 2020-10-01 14:02 | NUR ---
ASSUMED CARE OF PT AT 0700. PT ALERT AND ORIENTED X4 IN NO ACUTE DISTRESS. MAINTAINS SPO2 ON ROOM AIR. REPORTS FEELING BETTER. PAIN WELL CONTROLLED WITH CURRENT MED REGIMEN. VITALS STABLE. WCM.
[2020-10-01 15:39] VITALS: BP 150/102
[2020-10-01 19:19] VITALS: BP 162/93
--- NOTE | 2020-10-02 04:20 | NUR ---
ASSESSMENTS CHARTED, MEDS CHARTED GIVEN. PATIENT RESTING IN BED DURING SHIFT. ALERT AND ORIENTED, ON ROOM AIR DURING SHIFT. C/O PAIN SCIATICA BUT BETTER THAN IT WAS. UP AT COY IN ROOM. FALL PRECAUTIONS IN PLACE DURING SHIFT. ACHS ACCU CHECKS COVERED WITH 6 UNITS AT HS.
[2020-10-02 04:35] VITALS: BP 150/82
[2020-10-02 08:26] VITALS: BP 171/122
[2020-10-02 12:02] VITALS: BP 154/104
[2020-10-02 16:02] VITALS: BP 143/99
[2020-10-02 21:35] VITALS: BP 139/100
--- NOTE | 2020-10-03 03:55 | NUR ---
Patient progressing well towards outcome goals. Oxygenation optimal on roomair. Hopeful to be discharged today. Vital signs and rhythm stable. Morphine give for sciatica pain with rrelief. Up adlib, gait steady. Oral fluid and food intake good.
[2020-10-03 04:35] VITALS: BP 156/114
--- NOTE | 2020-10-03 05:06 | HC ---
[facility] [place] [address] CONSULTATION Name: JANEL JONES Room #: 363-P ADM IN M.R.#: [id number] Admission: 09/29/20 Attend Phys: Moe John MD Discharge: Date of : 79 Report #: [id number] THIS REPORT FOR: cc: Moe John MD, Neal A. MD Barry,Michael Swanson MD ~ DATE OF SERVICE: 10/01/2020 INFECTIOUS DISEASE CONSULTATION ATTENDING PHYSICIAN: Dr. John. REASON FOR EVALUATION: COVID-19 infection. HISTORY OF PRESENT ILLNESS: Chart reviewed, patient examined. This is a 45-year-old gentleman with a known history of sciatica, who was admitted through the Emergency Room with complaints of radiating pain down his left lower extremity. At that time, he was felt to be dyspneic as well. As part of the evaluation, he did have COVID testing. Initial was negative. Followup was positive. He is not certain of any exposure history. Chest x-ray did show some bilateral infiltrates felt to be more consistent with pulmonary edema, although he did admit to dyspnea and he has improved from that standpoint. He did undergo a venous Doppler as well which was unremarkable. At this point, he has no complaints. He has been afebrile. Denies any GI-related discomfort. He was started empirically on ceftriaxone and azithromycin. ALLERGIES: None known. CURRENT MEDICATIONS: Include metoprolol, torsemide, famotidine, amlodipine, azithromycin, ceftriaxone, methylprednisolone, enoxaparin, olmesartan, spironolactone, trazodone, p.r.n. analgesics and antiemetics. PAST MEDICAL HISTORY: As described above. Does have a history of hypertension, history of gout, cardiomyopathy, congestive heart failure, history of sciatica. SOCIAL HISTORY: Nonsmoker. No ethanol, no illicit drug use. FAMILY HISTORY: Noncontributory. REVIEW OF SYSTEMS: Otherwise, unremarkable 10-point review of systems. PHYSICAL EXAMINATION: GENERAL: He is pleasant, alert and cooperative. He is not overtly distressed. He is maintained on room air. He is obese and appears well nourished. [facility] [address] [place] [address] CONSULTATION Name: JANEL JONES Room #: [facility]#: [id number] Admission: 09/29/20 Attend Phys: Moe John MD Discharge: Date of : 79 Report #: [id number] VITAL SIGNS: Temperature 97.4, pulse 76, respirations 20, blood pressure 150/102. SKIN: Warm and dry, no rashes. HEENT: Otherwise unremarkable. He does have a thick neck. It is otherwise supple. LUNGS: Diminished breath sounds in part due to his GERD. I do not appreciate any significant rhonchi. HEART: Distant, regular. ABDOMEN: Obese, soft, nontender. EXTREMITIES: No cyanosis. GENITOURINARY AND RECTAL: Deferred. LABORATORY DATA: Initial electrolytes, sodium 141, potassium 3.5, chloride 100, bicarb was 31, anion gap of 10, BUN and creatinine 13 and 1.0, glucose of 168. Albumin of 2.8, total protein of 8.5. LFTs unremarkable. ABGs: A pH, initially pH 7.416, pCO2 of 40.9, pO2 of 91.0 on 2 liters. ProBNP of 38. Venous Doppler was unremarkable. No evidence of DVT. CBC: White count of 7.7, H and H 12.0 and 35.6, platelets of 268. Chest x-ray is as described above, cardiomegaly with pulmonary vascular congestion. COVID testing was 1 positive, out of 3 exams.. TSH was 0.540. Sed rate of 62. ASSESSMENT AND PLAN: Dyspnea with radiographic changes, positive COVID test. We will try to pare down therapy at this point. Add incentive spirometry. I do not think he would benefit from remdesivir at this point. We will monitor expectantly and see how he does over the course of the next 24-48 hours and certainly it would be an option moving forward. Increase activity as allowed. <ELECTRONICALLY SIGNED> By: Michael Benedict MD 10/03/20 0506 1652 0322 Michael Benedict MD /nt
[2020-10-03 07:46] VITALS: BP 161/124
[2020-10-03] MEDS ORDERED: TORSEMIDE20 MG PO (08:08)
[2020-10-03] MEDS ORDERED: PERCOCET 5-3251 EACH PO (08:10)
[2020-10-03] MEDS ORDERED: PREDNISONE 10 M10 M1 PO (08:10)
[2020-10-03] MEDS ORDERED: AMBIEN 10 MG TA10 MG PO (08:48)
[2020-10-03 09:47] VITALS: BP 161/124
--- NOTE | 2020-10-03 10:19 | NUR ---
ASSUMED PATIENT CARE THIS AM AT APPROXIMATELY 0700. PATIENT AWAKE ALERT ORIENTED, NO ACUTE DISTRESS NOTED THIS AM. NO COMPLAINTS OF PAIN. PATIENT SPOKE WITH DR. HASSAN THIS AM AND DISCHARGE ORDERS RECIEVED. PATIENT STATES HE IS READY TO GO HOME. RX LEFT ON PATIENT CHART AND GIVEN TO PATIENT AT TN. ALL PATIENT BELONGING TAKEN WITH HIM AT TN. PATIENT WAITING ON RIDE TO BE HERE TO REIMBURSEMENT REPRESENTATIVE PATIENT AT 11AM.
== END 2020-10-03 12:50 | disposition home or self-care (01) | DRG 177 ==
LOC: ER 11:39 → 3W 15:35 → EROBS 15:35 → 3W 20:47
PROVIDERS: Emergency Medicine; Internal Medicine Cardiovascular Disease; ADMIT Family Medicine; ATTEND Family Medicine
DX: U07.1 COVID-19 (principal); I50.43 Acute on chronic combined systolic (congestive) and diastolic (congestive) heart failure; J12.89 Other viral pneumonia; Z68.43 Body mass index [BMI] 50.0-59.9, adult; I42.9 Cardiomyopathy, unspecified; E66.01 Morbid (severe) obesity due to excess calories; G47.33 Obstructive sleep apnea (adult) (pediatric); I11.0 Hypertensive heart disease with heart failure; M10.9 Gout, unspecified; M54.32 Sciatica, left side; M54.5 Low back pain; E78.00 Pure hypercholesterolemia, unspecified; E11.9 Type 2 diabetes mellitus without complications; E83.42 Hypomagnesemia; E78.5 Hyperlipidemia, unspecified; D64.9 Anemia, unspecified; Z79.899 Other long term (current) drug therapy; Z87.891 Personal history of nicotine dependence; Z86.718 Personal history of other venous thrombosis and embolism; Z79.84 Long term (current) use of oral hypoglycemic drugs; R06.03 Acute respiratory distress
CPT/HCPCS: 10879

== ENCOUNTER → 2020-12-15 | Outpatient (CLI) | payer OTHER ==
[~2020-12-15] MED LIST changes: +AMBIEN 10 MG TA10 MG PO; +PERCOCET 5-3251 EACH PO; +PREDNISONE 10 M10 M1 PO; +TORSEMIDE20 MG PO
== END ==
LOC: SJCVCIMAG 10:26
PROVIDERS: ATTEND Internal Medicine Cardiovascular Disease
DX: I42.8 Other cardiomyopathies (principal); I42.9 Cardiomyopathy, unspecified; I10 Essential (primary) hypertension; E66.01 Morbid (severe) obesity due to excess calories; Z87.891 Personal history of nicotine dependence; Z72.89 Other problems related to lifestyle

== ENCOUNTER 2021-06-02 06:42 | Emergency (ER) | payer OTHER ==
[~2021-06-02] VITALS: Ht 182.9 cm; Wt 177.8 kg
--- NOTE | 2021-06-02 07:27 | EKG ---
[place] [address] [place] [address] ELECTROCARDIOGRAM REPORT Name: JANEL JONES Pramod WILKINSON Room #: [facility].#: [id number] Admission: Attend Phys: Discharge: Date of : 79 Report #: [id number] [facility] ED Test Date: 2021-06-02 Test Time: 07:08:26 Pat Name: JANEL JONES Department: Room: Gender: Vat Operator: : 1975 Requested By: Anshu Mcgovern Order Number: [id number] MD: Parvez Goldberg Measurements Intervals [place] Rate: 99 P: 28 VA: 160 QRS: -24 QRSD: 106 T: 132 QT: 366 QTc: 470 Interpretive Statements Sinus rhythm Probable left atrial enlargement Borderline left axis deviation Nonspecific repol abnormality, lateral leads Compared to ECG 09/29/2020 13:53:03 Early repolarization now present Sinus tachycardia no longer present T-wave abnormality no longer present Electronically Signed On 06-02-2021 7:26:59 CDT by Parvez Goldberg [email or web address] <ELECTRONICALLY SIGNED> By: Parvez Goldberg MD, [facility] 06/02/21725 7 7 Parvez Goldberg MD, FACC /EPI
[2021-06-02 07:29] LABS: ABSOLUTE NEUTROPHILS 5.7 thou/uL (1.4-8.2); BASOPHILS 0.8 % (0.0-2.0); EOSINOPHILS 2.2 % (0.0-3.0); HEMATOCRIT 36.4 % (42.0-52.0); HEMOGLOBIN 12.2 gm/dL (14.0-18.0); LYMPHOCYTES 18.1 % (24.0-44.0); MCHC 33.6 g/dL (28.0-37.0); MCV 92.2 fL (80.0-100.0); MONOCYTES 9.4 % (1.0-8.0); PLATELET COUNT 254 thou/uL (150-400); POLYS 69.5 % (36.0-66.0); RBC 3.95 mil/uL (4.50-6.00); RDW 14.6 % (10.5-14.5); WBC 8.3 thou/uL (4.0-11.0)
[2021-06-02 07:33] LABS: ANION GAP 11 mmol/L (7-16); BUN 16 mg/dL (7-18); CALCIUM 8.6 mg/dL (8.5-10.1); CHLORIDE 99 mmol/L (98-107); CO2 29 mmol/L (21-32); CREATININE 1.1 mg/dL (0.7-1.3); GLUCOSE 202 mg/dL (74-106); SODIUM 139 mmol/L (136-145)
[2021-06-02 07:43] LABS: ALBUMIN 3.2 g/dL (3.4-5.0); MAGNESIUM 1.1 mg/dL (1.8-2.4); SGPT 15 U/L (16-63); TOTAL BILIRUBIN 0.7 mg/dL (0.2-1.0); TOTAL PROTEIN 8.4 g/dL (6.4-8.2); TROPONIN-I <0.06 ng/mL (<0.06)
[2021-06-02 09:04] LABS: SGOT 31 U/L (15-37)
[2021-06-02 14:06] VITALS: BP 134/76
== END 2021-06-02 14:08 | disposition short-term general hospital (02) ==
LOC: ER 06:42
PROVIDERS: Emergency Medicine
DX: E87.6 Hypokalemia (principal); E83.42 Hypomagnesemia; M25.561 Pain in right knee; R06.00 Dyspnea, unspecified; I11.0 Hypertensive heart disease with heart failure; I50.9 Heart failure, unspecified; E66.01 Morbid (severe) obesity due to excess calories; Z68.43 Body mass index [BMI] 50.0-59.9, adult; Z79.899 Other long term (current) drug therapy; Z87.891 Personal history of nicotine dependence